=== PATIENT | male | born 1960 | race African-American/Black ===

== ENCOUNTER 2016-08-24 16:32 | Emergency (ER) | payer OTHER ==
[2016-08-24 16:37] VITALS: BP 118/80; PULSE 80; TEMP 98.1; BMI 21.9
--- NOTE | 2016-08-24 17:29 | PDOC ---
History of Present Illness - General Chief Complaint: Injury Stated Complaint: LT ARM INJURY Time Seen by Provider: 08/24/16 16:49 History Source: Patient Exam Limitations: No Limitations - History of Present Illness Initial Comments: 08/24/16 17:25 56-year-old male presents to the ED with complaints of bruising to the right bicep after he lifted some boxes up. patient states initially started with right anterior shoulder pain which resolved with time and denies any previous pain or injury to the affected area. 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 Patient has no other complaints at this time or history of DVT. Patient also denies any other bruising to his body including bleeding gums, blood-tinged urine, or rectal bleeding. Timing/Duration: other Severity: mild Associated Symptoms: reports: denies symptoms Past History - Past Medical History Allergies/Adverse Reactions: Allergies Allergy/AdvReac Type Severity Reaction Status Date / Time No Known Allergies Allergy Verified 08/24/16 16:36 Home Medications: Ambulatory Orders Amlodipine Besylate [Norvasc -] 10 mg PO DAILY 08/05/13 Aspirin [ASA -] 81 mg PO DAILY 08/05/13 Iron 325 mg PO DAILY 08/05/13 Prednisone [Deltasone -] 10 mg PO DAILY 08/05/13 Ramipril 10 mg PO DAILY 08/05/13 Tadalafil [Cialis] 5 mg PO DAILY 08/05/13 Insulin Glargine,Hum.rec.anlog [Lantus (10mL VIAL) -] 42 units SQ AM #0 Insulin Lispro [Humalog] 0 unit SQ DAILY #0 08/06/13 Metoprolol Tartrate [Lopressor -] 100 mg PO BID #60 tablet 08/06/13 Rosuvastatin [Crestor -] 20 mg PO DAILY #30 tablet 08/06/13 Tacrolimus [Prograf] 0.5 mg PO DAILY #0 08/06/13 Cellcept 750 mg PO BID 06/27/15 Diabetes: Yes HTN: Yes Kidney Stones: (RT KIDNEY TRANSPLAT 2004) - Psycho/Social/Smoking Cessation Hx Anxiety: No Suicidal Ideation: No Smoking History: Never smoked Have you smoked in the past 12 months: No If you are a former smoker, when did you quit?: 2001 Hx Alcohol Use: No Drug/Substance Use Hx: No Substance Use Type: Alcohol Patient Lives Alone: No Lives with/in: spouse/SO Review of Systems - Review of Systems Able to Perform ROS?: Yes Constitutional: No: Symptoms Reported Respiratory: No: Symptoms reported Cardiac (ROS): No: Symptoms Reported ABD/GI: No: Symptoms Reported : No: Symptoms Reported Musculoskeletal: No: Muscle Pain Integumentary: Yes: Bruising. No: Lumps Neurological: No: Tingling, Weakness Endocrine: No: Symptoms Reported Hematologic/Lymphatic: No: Symptoms Reported *Physical Exam - Vital Signs Last Vital Signs Temp Pulse Resp BP Pulse Ox 98.1 F 80 18 118/80 100 08/24/16 16:34 08/24/16 16:34 08/24/16 16:34 08/24/16 16:34 08/24/16 16:34 - Physical Exam General Appearance: Yes: Nourished, Appropriately Dressed. No: Apparent Distress Respiratory/Chest: positive: Lungs Clear, Normal Breath Sounds. negative: Respiratory Distress, Accessory Muscle Use Cardiovascular: positive: Regular Rhythm, Regular Rate. negative: Murmur Extremity: positive: Normal Capillary Refill, Normal Range of Motion. negative : Normal Inspection, Tender, Swelling Integumentary: positive: Ecchymosis (purpleish blue hue to patient's medial aspect of right bicep extending from the proximal aspect extending to the antecubital space. No palpable mass, no increased warmth, no tenderness to touch , surrounding skin intact.) Neurologic: positive: Motor Strength 5/5 (right hand grasp, right shoulder shrug , flexion and extension against resistance). negative: Sensory Deficit ED Treatment Course - RADIOLOGY Radiology Studies Ordered: Category Date Time Status DUPLEX VASCUL US-1 ARM [US] Stat Ultrasound 08/24/16 17:22 Ordered Medical Decision Making - Medical Decision Making 08/24/16 17:29 Patient with right bicep injury likely a partial tear. Secondary to patient's history patient will have a DVT study to rule out hematoma/DVT. Patient otherwise asymptomatic 08/24/16 18:24 Duplex shows no evidence of DVT but does show a hypoechoic complex masslike density in the left upper arm suggestive of a hematoma. Unable to rule out muscular tear. Patient will be given recommendations to take NSAIDs follow-up with or so, and return to ED if symptoms worsen *DC/Admit/Observation/Transfer Diagnosis at time of Disposition: Tear of biceps muscle Qualifiers: Encounter type: initial encounter Laterality: left Qualified Code(s): S46.112A - Strain of muscle, fascia and tendon of long head of biceps, left arm, initial encounter - Discharge Dispostion Disposition: HOME Condition at time of disposition: Good - Referrals Referrals: Bong Rick MD [Primary Care Provider] - Kalen Gallagher MD [Staff Physician] - - Patient Instructions Printed Discharge Instructions: DI for Hematoma (Bruise) Additional Instructions: Please apply heat to the affected area and massage slightly. Please take NSAIDs such as Motrin as needed for discomfort. If symptoms continue greater than 1 week, follow up with referred orthopedist.
== END 2016-08-24 18:32 | disposition home or self-care (01) ==
LOC: JERFT 16:32 → SUPCPDRO 16:32 → JERFT 18:32
DX: S46.112A Strain of muscle, fascia and tendon of long head of biceps, left arm, initial encounter (principal); X58.XXXA Exposure to other specified factors, initial encounter; Y93.89 Activity, other specified; Y92.9 Unspecified place or not applicable; Z94.0 Kidney transplant status; Z79.82 Long term (current) use of aspirin; E11.9 Type 2 diabetes mellitus without complications; I10 Essential (primary) hypertension; Z87.891 Personal history of nicotine dependence
CPT/HCPCS: 93971; 99281-25

== ENCOUNTER 2016-09-13 17:43 | Inpatient (IN) | payer OTHER ==
--- NOTE | 2016-09-13 18:47 | PDOC ---
History of Present Illness - General Chief Complaint: Laceration Stated Complaint: INJURY Time Seen by Provider: 09/13/16 18:45 History Source: Patient Exam Limitations: No Limitations - History of Present Illness Initial Comments: 09/13/16 19:20 Patient is here with complaints of cut to his left big toe. States is uncertain as to injury, but noticed swelling, redness, and discoloration to his foot today. Has had multiple issues in the past related to peripheral vascular disease and diabetes. Had partial amputation of right great toe and second digit of right foot secondary to diabetic ulcers and osteomyelitis some years ago. Patient is also a kidney transplant and immunosuppressed since 2004. Patient to peripheral neuropathy and has no sensation or pain to his legs therefore did not appreciate the wound to his toe until today. He for, but states does not generally mount fevers. Case was discussed with Dr. Castro Rangel in the main emergency department who agrees patient will be evaluated with probable admission for IV antibiotic therapy and moved to main emergency department for remainder of care and disposition. Patient was updated to plan. Occurred: reports: just prior to arrival, this afternoon Severity: reports: mild Pain Location: reports: none Associated Symptoms (Fall): denies symptoms Past History - Travel Traveled outside of the country in the last 30 days: No Close contact w/someone who was outside of country & ill: No - Past Medical History Allergies/Adverse Reactions: Allergies Allergy/AdvReac Type Severity Reaction Status Date / Time No Known Allergies Allergy Verified 09/13/16 17:55 Home Medications: Ambulatory Orders Amlodipine Besylate [Norvasc -] 10 mg PO DAILY 08/05/13 Aspirin [ASA -] 81 mg PO DAILY 08/05/13 Iron 325 mg PO DAILY 08/05/13 Prednisone [Deltasone -] 10 mg PO DAILY 08/05/13 Ramipril 10 mg PO DAILY 08/05/13 Tadalafil [Cialis] 5 mg PO DAILY 08/05/13 Insulin Lispro [Humalog] 0 unit SQ DAILY #0 08/06/13 Metoprolol Tartrate [Lopressor -] 100 mg PO BID #60 tablet 08/06/13 Rosuvastatin [Crestor -] 20 mg PO DAILY #30 tablet 08/06/13 Cellcept 750 mg PO BID 06/27/15 Insulin Glargine,Hum.rec.anlog [Lantus (10mL VIAL) -] 38 units SQ AM 09/14/16 Tacrolimus [Prograf] 2 mg PO AM 09/14/16 Tacrolimus [Prograf] 2.5 mg PO HS 09/14/16 Diabetes: Yes HTN: Yes Kidney Stones: (RT KIDNEY TRANSPLAT 2004) - Psycho/Social/Smoking Cessation Hx Anxiety: No Suicidal Ideation: No Smoking History: Never smoked Have you smoked in the past 12 months: No If you are a former smoker, when did you quit?: 2001 Information on smoking cessation initiated: No Hx Alcohol Use: No Drug/Substance Use Hx: No Substance Use Type: None Review of Systems - Review of Systems Able to Perform ROS?: Yes Is the patient limited Citizen [place] proficient: Yes Constitutional: Yes: Symptoms Reported, See HPI. No: Fever, Loss of Appetite, Malaise HEENTM: No: Symptoms Reported Respiratory: No: Symptoms reported Musculoskeletal: Yes: Symptoms Reported, See HPI. No: Joint Pain (diabetic peripheral neuropathy) Integumentary: Yes: See HPI, Erythema, Lesions Neurological: Yes: Paresthesia. No: Symptoms reported All Other Systems: Reviewed and Negative *Physical Exam - Vital Signs Last Vital Signs Temp Pulse Resp BP Pulse Ox 98.1 F 70 18 153/89 100 09/13/16 17:53 09/13/16 17:53 09/13/16 17:53 09/13/16 17:53 09/13/16 17:53 - Physical Exam General Appearance: Yes: Appropriately Dressed, Apparent Distress HEENT: positive: MARY, Normal ENT Inspection, TMs Normal, Pharynx Normal Neck: negative: Tender Respiratory/Chest: positive: Lungs Clear, Normal Breath Sounds Musculoskeletal: negative: Normal Inspection, Decreased Range of Motion, Vertebral Tenderness Extremity: positive: Normal Range of Motion, Swelling, Erythema, Other (patient with peripheral vascular disease changes, shiny appearance, and left foot approximately 1.5 times size of right lower extremity and foot.. Has swelling and open lesion to the left inner aspect of left great toe mid point ). negative: Normal Capillary Refill, Normal Inspection Integumentary: positive: Erythema, Swelling. negative: Normal Color Neurologic: positive: supervisor drapery hanging II-XII NML intact, Fully Oriented, Alert, Normal Mood/ Affect, Normal Response, Motor Strength 5/5 ED Treatment Course - LABORATORY CBC & Chemistry Diagram: 09/15/16 06:09/15/16 06:00 Progress Note - Progress Note Progress Note: IV started, labs drawn and sent, and patient moved to room 12 per direction from main emergency department evaluation and disposition. *DC/Admit/Observation/Transfer Diagnosis at time of Disposition: Cellulitis and abscess of foot
[2016-09-13 19:47] LABS: BASOPHIL 0.2 % (0-2.0); EOSINOPHIL 0.2 % (0-4.5); MCH 30.3 pg (25.7-33.7); MEAN CELL VOLUME 94.7 fl (80-96); MEAN PLT VOLUME 8.4 fl (7.5-11.1); NEUTROPHILS 72.3 % (42.8-82.8); PLATELET COUNT 224 K/MM3 (134-434); RDW 15.6 % (11.9-15.9); WHITE BLOOD COUNT 12.2 K/mm3 (4.0-10.0)
[2016-09-13 20:02] LABS: INR 1.05 (0.82-1.09); PROTHROMBIN TIME (PATIENT) 11.6 SEC (9.98-11.88)
[2016-09-13 20:34] LABS: URINE APPEARANCE CLEAR; URINE BILIRUBIN NEGATIVE (NEGATIVE); URINE BLOOD NEGATIVE (NEGATIVE); URINE COLOR YELLOW; URINE GLUCOSE (UA) 1+ (NEGATIVE); URINE KETONE NEGATIVE (NEGATIVE); URINE LEUK ESTERASE NEGATIVE (NEGATIVE); URINE NITRITE NEGATIVE (NEGATIVE); URINE UROBILINOGEN 2.0 E.U/dl E.U./dl (0.2-1.0)
[2016-09-13 20:53] LABS: ALBUMIN 3.4 g/dl (3.4-5.0); ALK PHOS 51 U/L (45-117); ANION GAP 10 (8-16); BILIRUBIN,TOTAL 1.8 mg/dL (0.2-1.0); CALCIUM 8.3 mg/dL (8.5-10.1); CO2 27 mmol/L (21-32); CREATININE 1.2 mg/dL (0.7-1.3); GLUCOSE,RANDOM 130 mg/dL (74-106); SGOT/AST 16 U/L (15-37); SGPT/ALT 13 U/L (12-78); TOT PROT 7.4 g/dl (6.4-8.2)
[2016-09-13 20:54] LABS: URINE PROTEIN 2+ (NEGATIVE)
[2016-09-13 20:56] LABS: URINE MUCUS RARE; URINE RBC 3 /hpf (0-3); URINE WBC 1 /hpf (3-5)
[2016-09-13] MEDS ORDERED: VANCOMYCIN 1,500 MG in DEXTROSE 5%-WATER - 500 ML IVPB ONE (22:34)
[2016-09-13] MEDS ORDERED: MYCOPHENOLATE MOFETIL 250 MG CAPSULE PO ONE (23:53)
--- NOTE | 2016-09-13 23:56 | HP ---
CHIEF COMPLAINT: Pain, swelling, redness to L-great toe/leg PCP: Dr. Rick HISTORY OF PRESENT ILLNESS: This is a 56 y/o male with a significant medical history of Hypertension, Hyperlipidemia, IDDM, Diabetic Ulcers, Osteomyelitis CVA (no deficits, 2001), s/ p Right Kidney Transplant (on Prograf/Cellcept, 2004). Who presents to the ED with pain, swelling, redness, "pus" to medial aspect of R-great toe he noted today. Patient unsure when the infection began. He reports having intermittent chills for a few days. He denies fever, cough, SOB, CP, AP, N/V/D, constipation , dysuria. ER course was notable for: (1) WBC 12.2 (2) ESR 37, CRP 12.3 (3) Xray left foot- report pending Recent Travel: None PAST MEDICAL HISTORY: See HPI PAST SURGICAL HISTORY: s/p R- Kidney Transplant 2004 L- Leg Sx R- Great Toe, 2nd digit partial amputation Social History: Smoking: Former 12 yrs ago Alcohol: Occasional Drugs: Denies Lives with spouse, employed [employer] Family History: Father: HTN, Kidney Disease, Sister: Kidney Disease Allergies No Known Allergies Allergy (Verified 09/13/16 17:55) HOME MEDICATIONS: Home Medications Medication Instructions Recorded Amlodipine Besylate [Norvasc -] 10 mg PO DAILY 08/05/13 Aspirin [ASA -] 81 mg PO DAILY 08/05/13 Iron 325 mg PO DAILY 08/05/13 Prednisone [Deltasone -] 10 mg PO DAILY 08/05/13 Ramipril 10 mg PO DAILY 08/05/13 Tadalafil [Cialis] 5 mg PO DAILY 08/05/13 Insulin Glargine,Hum.rec.anlog 42 units SQ AM #0 08/06/13 [Lantus (10mL VIAL) -] Insulin Lispro [Humalog] 0 unit SQ DAILY #0 08/06/13 Metoprolol Tartrate [Lopressor -] 100 mg PO BID #60 tablet 08/06/13 Rosuvastatin [Crestor -] 20 mg PO DAILY #30 tablet 08/06/13 Tacrolimus [Prograf] 0.5 mg PO DAILY #0 08/06/13 Cellcept 750 mg PO BID 06/27/15 REVIEW OF SYSTEMS CONSTITUTIONAL: Absent: fever, chills, diaphoresis, generalized weakness, malaise, loss of appetite, weight change HEENT: Absent: rhinorrhea, nasal congestion, throat pain, throat swelling, difficulty swallowing, mouth swelling, ear pain, eye pain, visual changes CARDIOVASCULAR: Absent: chest pain, syncope, palpitations, irregular heart rate, lightheadedness , peripheral edema RESPIRATORY: Absent: cough, shortness of breath, dyspnea with exertion, orthopnea, wheezing, stridor, hemoptysis GASTROINTESTINAL: Absent: abdominal pain, abdominal distension, nausea, vomiting, diarrhea, constipation, melena, hematochezia GENITOURINARY: Absent: dysuria, frequency, urgency, hesitancy, hematuria, flank pain, genital pain MUSCULOSKELETAL: Absent: myalgia, arthralgia, joint swelling, back pain, neck pain SKIN: redness/pustule to L-great toe Absent: rash, itching, pallor HEMATOLOGIC/IMMUNOLOGIC: Absent: easy bleeding, easy bruising, lymphadenopathy, frequent infections ENDOCRINE: Absent: unexplained weight gain, unexplained weight loss, heat intolerance, cold intolerance NEUROLOGIC: Absent: headache, focal weakness or paresthesias, dizziness, unsteady gait, seizure, mental status changes, bladder or bowel incontinence PSYCHIATRIC: Absent: anxiety, depression, suicidal or homicidal ideation, hallucinations. PHYSICAL EXAMINATION Vital Signs - 24 hr 09/13/16 09/13/16 17:53 22:49 Temperature 98.1 F 98.2 F Pulse Rate 70 Pulse Rate [ 66 Right Radial] Respiratory 18 20 Rate Blood Pressure 153/89 Blood Pressure 146/89 [Left Arm] O2 Sat by Pulse 100 99 Oximetry (%) GENERAL: Awake, alert, and fully oriented, in no acute distress. HEAD: Normal with no signs of trauma. EYES: Pupils equal, round and reactive to light, extraocular movements intact, sclera anicteric, conjunctiva clear. No lid lag. EARS, NOSE, THROAT: Ears normal, nares patent, oropharynx clear without exudates. Moist mucous membranes. NECK: Normal range of motion, supple without lymphadenopathy, JVD, or masses. LUNGS: Breath sounds equal, clear to auscultation bilaterally. No wheezes, and no crackles. No accessory muscle use. HEART: Regular rate and rhythm, normal S1 and S2 without murmur, rub or gallop. ABDOMEN: Soft, nontender, not distended, normoactive bowel sounds, no guarding, no rebound, no masses. No hepatomegaly or splenomegaly. MUSCULOSKELETAL: Normal range of motion at all joints. No bony deformities or tenderness. No CVA tenderness. UPPER EXTREMITIES: 2+ pulses, warm, well-perfused. No cyanosis. No clubbing. No peripheral edema. LOWER EXTREMITIES: 2+ pulses, warm, well-perfused. No calf tenderness. Trace L> R peripheral edema, +Shiny, hairless NEUROLOGICAL: Cranial nerves II-XII intact. Normal speech. Gait not observed. PSYCHIATRIC: Cooperative. Good eye contact. Appropriate mood and affect. SKIN: Warm, dry, normal turgor, no rashes .normal capillary refill. + erythema, edema, white pustule noted, no drainage to medial aspect of L- distal phalanx #1 , partial amputation to R- great phalanx noted Laboratory Results - last 24 hr 09/13/16 09/13/16 09/13/16 19:40 19:40 19:40 WBC 12.2 H RBC 4.15 Hgb 12.6 Hct 39.3 MCV 94.7 MCHC 32.0 RDW 15.6 Plt Count 224 MPV 8.4 Neutrophils % 72.3 Lymphocytes % 18.1 D Monocytes % 9.2 Eosinophils % 0.2 D Basophils % 0.2 ESR INR 1.05 Sodium 138 Potassium 3.7 Chloride 101 Carbon Dioxide 27 Anion Gap 10 BUN 10 D Creatinine 1.2 Creat Clearance w eGFR > 60 Random Glucose 130 H Lactic Acid Calcium 8.3 L Total Bilirubin 1.8 H AST 16 ALT 13 D Alkaline Phosphatase 51 D C-Reactive Protein Total Protein 7.4 Albumin 3.4 Urine Color Urine Appearance Urine pH Ur Specific [place] Urine Protein Urine Glucose (UA) Urine Ketones Urine Blood Urine Nitrite Urine Bilirubin Urine Urobilinogen Ur Leukocyte Esterase Urine RBC Urine WBC Urine Mucus 09/13/16 09/13/16 09/13/16 19:40 20:20 21:55 WBC RBC Hgb Hct MCV MCHC RDW Plt Count MPV Neutrophils % Lymphocytes % Monocytes % Eosinophils % Basophils % ESR INR Sodium Potassium Chloride Carbon Dioxide Anion Gap BUN Creatinine Creat Clearance w eGFR Random Glucose Lactic Acid 0.9 Calcium Total Bilirubin AST ALT Alkaline Phosphatase C-Reactive Protein 12.3 H Total Protein Albumin Urine Color Yellow Urine Appearance Clear Urine pH 6.0 Ur Specific [place] 1.025 Urine Protein 2+ H Urine Glucose (UA) 1+ H Urine Ketones Negative Urine Blood Negative Urine Nitrite Negative Urine Bilirubin Negative Urine Urobilinogen 2.0 e.u/dl Ur Leukocyte Esterase Negative Urine RBC 3 Urine WBC 1 Urine Mucus Rare 09/13/16 21:55 WBC RBC Hgb Hct MCV MCHC RDW Plt Count MPV Neutrophils % Lymphocytes % Monocytes % Eosinophils % Basophils % ESR 37 H INR Sodium Potassium Chloride Carbon Dioxide Anion Gap BUN Creatinine Creat Clearance w eGFR Random Glucose Lactic Acid Calcium Total Bilirubin AST ALT Alkaline Phosphatase C-Reactive Protein Total Protein Albumin Urine Color Urine Appearance Urine pH Ur Specific [place] Urine Protein Urine Glucose (UA) Urine Ketones Urine Blood Urine Nitrite Urine Bilirubin Urine Urobilinogen Ur Leukocyte Esterase Urine RBC Urine WBC Urine Mucus ASSESSMENT/PLAN: This is a 56 y/o male with a PMHx of: HTN, HLD, DM, s/p R- kidney transplant ( on Prograf, Cellsept, 2004), CVA (no residual, 2001). Admitted M/S Cellulitis L - Great Toe for further evaluation of their emergent condition. Plan: 1. ID: Cellulitis L- Great Toe - Likely secondary to PVD vs Neuropathy vs Hyperglycemia - Blood Cultures-pending - WBC 12.2 - ESR and CRP are elevated - Foot xray- r/o osteomyelitis report- pending - Vancomycin given in ED - Appreciate ID Consult - Consider Podiatry Consult - Wound Care- dressing - Will continue Vancomycin - Consider adding Zosyn for pseudomonal coverage - CBC in am 2. Endo: Diabetes Mellitus//Hyperglycemia - Serum glucose 130 - BGMs - ISS - Will hold home meds for tighter glycemic control - HgbA1C in am 3. Card: HTN//HLD - Controlled - Continue home meds - Monitor BP - Monitor renal function 4. Nephrology: s/p R- Kidney Transplant - Continue Prograf, Cellsept 5. Neuro: hx CVA - no residuals 6. FEN - Tolerates PO Fluids - Replete lytes prn - Low Na, Diabetic Diet Code Status: Full Code Dispo: Requires Inpatient Care Problem List - Problem (1) Cellulitis and abscess of foot Code(s): L03.119 - CELLULITIS OF UNSPECIFIED PART OF LIMB L02.619 - CUTANEOUS ABSCESS OF UNSPECIFIED FOOT (2) Diabetes mellitus Code(s): E11.9 - TYPE 2 DIABETES MELLITUS WITHOUT COMPLICATIONS (3) Hypertension Code(s): I10 - ESSENTIAL (PRIMARY) HYPERTENSION (4) Hyperlipemia Code(s): E78.5 - HYPERLIPIDEMIA, UNSPECIFIED (5) Status post kidney transplant Code(s): Z94.0 - KIDNEY TRANSPLANT STATUS (6) DVT prophylaxis Code(s): EER6449 - Visit type - Emergency Visit Emergency Visit: Yes ED Registration Date: 09/13/16 Care time: The patient presented to the Emergency Department on the above date and was hospitalized for further evaluation of their emergent condition. - New Patient This patient is new to me today: Yes Date on this admission: 09/13/16 - Critical Care Critical Care patient: No
--- NOTE | 2016-09-14 00:44 | PDOC ---
*Physical Exam - Vital Signs Last Vital Signs Temp Pulse Resp BP Pulse Ox 98.2 F 66 20 146/89 99 09/13/16 22:49 09/13/16 22:49 09/13/16 22:49 09/13/16 22:49 09/13/16 22:49 - Physical Exam Comments: 09/14/16 00:43 The patient was examined by STEERER Delano] under my direct supervision. I personally evaluated the patient. I concur with the above findings and the plan of care. ED Treatment Course - LABORATORY CBC & Chemistry Diagram: 09/13/16 19:40 09/13/16 19:40 - ADDITIONAL ORDERS Additional order review: Laboratory Results 09/13/16 09/13/16 09/13/16 21:55 20:20 19:40 INR Sodium Potassium Chloride Carbon Dioxide Anion Gap BUN Creatinine Creat Clearance w eGFR Random Glucose Lactic Acid 0.9 Calcium Total Bilirubin AST ALT Alkaline Phosphatase C-Reactive Protein 12.3 H Total Protein Albumin Urine Color Yellow Urine Appearance Clear Urine pH 6.0 Ur Specific [place] 1.025 Urine Protein 2+ H Urine Glucose (UA) 1+ H Urine Ketones Negative Urine Blood Negative Urine Nitrite Negative Urine Bilirubin Negative Urine Urobilinogen 2.0 e.u/dl Ur Leukocyte Esterase Negative Urine RBC 3 Urine WBC 1 Urine Mucus Rare 09/13/16 09/13/16 19:40 19:40 INR 1.05 Sodium 138 Potassium 3.7 Chloride 101 Carbon Dioxide 27 Anion Gap 10 BUN 10 D Creatinine 1.2 Creat Clearance w eGFR > 60 Random Glucose 130 H Lactic Acid Calcium 8.3 L Total Bilirubin 1.8 H AST 16 ALT 13 D Alkaline Phosphatase 51 D C-Reactive Protein Total Protein 7.4 Albumin 3.4 Urine Color Urine Appearance Urine pH Ur Specific [place] Urine Protein Urine Glucose (UA) Urine Ketones Urine Blood Urine Nitrite Urine Bilirubin Urine Urobilinogen Ur Leukocyte Esterase Urine RBC Urine WBC Urine Mucus 09/13/16 19:40 RBC 4.15 MCV 94.7 MCHC 32.0 RDW 15.6 MPV 8.4 Neutrophils % 72.3 Lymphocytes % 18.1 D Monocytes % 9.2 Eosinophils % 0.2 D Basophils % 0.2 - Medications Given in the ED: ED Medications Discontinued Medications Generic Name Dose Route Start Last Admin Trade Name Freq PRN Reason Stop Dose Admin Vancomycin HCl 1,500 mg/ 500 mls @ 250 mls/hr 09/13/16 22:34 09/13/16 23:00 Dextrose IVPB 09/14/16 00:33 250 mls/hr ONCE ONE Administration Protocol Mycophenolate Mofetil 750 mg 09/13/16 23:53 09/14/16 00:22 Cellcept - PO 09/13/16 23:54 750 mg ONCE ONE Administration *DC/Admit/Observation/Transfer Diagnosis at time of Disposition: Cellulitis and abscess of foot - Discharge Dispostion Condition at time of disposition: Fair Admit: Yes
[2016-09-14] MEDS ORDERED: TACROLIMUS 0.5 MG CAPSULE (NF) PO SCH (00:45)
[2016-09-14] MEDS: TACROLIMUS ANHYDROUS 1 MG CAPSULE (NF) PO SCH ×2 (01:00→09:18)
[2016-09-14 03:38] VITALS: BMI 21.9
[2016-09-14] MEDS: INSULIN SLIDING SCALE (NOVOLOG) 1 VIAL SQ SCH ×4 (06:01→21:36)
[2016-09-14] MEDS: amLODIPine BESYLATE 10 MG TABLET (FP) PO SCH (06:38)
[2016-09-14] MEDS ORDERED: TACROLIMUS 2 MG PO SCH (07:00)
[2016-09-14] MEDS ORDERED: PT OWN MED DRAWER 7, Y5N ONE ×3 (09:13→21:06)
--- NOTE | 2016-09-14 09:13 | PN ---
Progress Note (short form) - Note Progress Note: Subjective: The patient was seen and examined at the bedside, he states he noticed pus on his left foot great toe about 4-5 days ago. Wound culture ordered Podiatry consult F/u ID consult Current Medications Generic Name Dose Route Start Last Admin Trade Name Gaganq PRN Reason Stop Dose Admin Amlodipine Besylate 10 mg 09/14/16 06:45 09/14/16 06:38 Norvasc - PO 10 mg DAILY MIA Administration Aspirin 81 mg 09/14/16 10:00 Asa - PO DAILY [facility] Ferrous Sulfate 325 mg 09/14/16 10:00 Feosol - PO DAILY MIA Vancomycin HCl 1,250 mg/ 250 mls @ 166.667 mls/hr 09/14/16 22:00 Dextrose IVPB BID MIA Vancomycin HCl 1,250 mg/ 250 mls @ 166.667 mls/hr 09/14/16 10:00 Dextrose IVPB 09/14/16 11:29 ONCE ONE Insulin Aspart 1 vial 09/14/16 07:00 09/14/16 06:01 Novolog Vial Sliding Scale - SQ Not Given ACHS [facility] Protocol Insulin Detemir 38 units 09/14/16 08:00 Levemir Vial SQ AM [facility] Metoprolol Tartrate 100 mg 09/14/16 10:00 Lopressor - PO BID MIA Mycophenolate Mofetil 750 mg 09/14/16 10:00 Cellcept - PO BID MIA Prednisone 10 mg 09/14/16 10:00 Deltasone - PO DAILY MIA Ramipril 10 mg 09/14/16 10:00 Altace - PO DAILY MIA Rosuvastatin Calcium 20 mg 09/14/16 22:00 Crestor - PO HS MIA Tacrolimus 2 mg 09/14/16 00:45 09/14/16 01:00 Prograf (Non-Formulary) PO 2 mg BID MIA Administration Tacrolimus 0.5 mg 09/14/16 00:45 09/14/16 01:00 Prograf (Non-Formulary) PO 0.5 mg HS MIA Administration Objective: Vital Signs Period Temp Pulse Resp BP Sys/C[place]oba Pulse Ox Last 24 Hr 98.1 F-98.4 F 64-76 18-20 146-172/89-96 99-100 Physical Exam: General: NAD, A&Ox3 Lungs: CTA bilaterally Heart: RRR, S1S2 Abd: Soft, non-tender, non-distended. Normoactive bowel sounds Ext: Left foot, lateral great toe with pustule and yellowish drainage. Left foot edema Neuro: CN 2-12 intact CBCD WBC 12.2 K/mm3 (4.0-10.0) H 09/13/16 19:40 RBC 4.15 M/mm3 (4.00-5.60) 09/13/16 19:40 Hgb 12.6 GM/dL (11.7-16.9) 09/13/16 19:40 Hct 39.3 % (35.4-49) 09/13/16 19:40 MCV 94.7 fl (80-96) 09/13/16 19:40 MCHC 32.0 g/dl (32.0-35.9) 09/13/16 19:40 RDW 15.6 % (11.9-15.9) 09/13/16 19:40 Plt Count 224 K/MM3 (134-434) 09/13/16 19:40 MPV 8.4 fl (7.5-11.1) 09/13/16 19:40 CMP Sodium 138 mmol/L (136-145) 09/13/16 19:40 Potassium 3.7 mmol/L (3.5-5.1) 09/13/16 19:40 Chloride 101 mmol/L (98-107) 09/13/16 19:40 Carbon Dioxide 27 mmol/L (21-32) 09/13/16 19:40 Anion Gap 10 (8-16) 09/13/16 19:40 BUN 10 mg/dL (7-18) D 09/13/16 19:40 Creatinine 1.2 mg/dL (0.7-1.3) 09/13/16 19:40 Creat Clearance w eGFR > 60 (>60) 09/13/16 19:40 Random Glucose 130 mg/dL (74-106) H 09/13/16 19:40 Calcium 8.3 mg/dL (8.5-10.1) L 09/13/16 19:40 Total Bilirubin 1.8 mg/dL (0.2-1.0) H 09/13/16 19:40 AST 16 U/L (15-37) 09/13/16 19:40 ALT 13 U/L (12-78) D 09/13/16 19:40 Alkaline Phosphatase 51 U/L (45-117) D 09/13/16 19:40 Total Protein 7.4 g/dl (6.4-8.2) 09/13/16 19:40 Albumin 3.4 g/dl (3.4-5.0) 09/13/16 19:40 Assessment: This is a 56 year old male with PMHx of HTN, HLD, DM, s/p R- kidney transplant (on Prograf, Cellsept, 2004), CVA (no residual, 2001), who presented to the ED with left foot great toe wound/pustule. Plan: 1) ID: Left foot, great toe cellulitis - Elevated ESR/CRP - F/u foot x-ray - Continue Vancomycin per now (pending ID approval) - MRI left foot - F/u wound culture - F/u podiatry consult - F/u ID consult 2) Endocrine: DM - Continue Levemir 38u sq am - BGM ACHS - ISS ACHS 3) Cardiology: HTN - Continue home medications Hyperlipidemia - Continue Crestor 4) Nephrology: S/p right kidney transplant - Continue Prograf - Continue Cellcept - Continue Prenisone 5) F/E/N: - Sodium controlled, diabetic diet - Monitor electrolytes 6) Prophylaxis: - SCDs bilaterally - OOB ambulating 7) Dispo: - Requires continued inpatient care CODE STATUS: FULL CODE Visit type - Emergency Visit Emergency Visit: Yes ED Registration Date: 09/14/16 Care time: The patient presented to the Emergency Department on the above date and was hospitalized for further evaluation of their emergent condition. - New Patient This patient is new to me today: Yes Date on this admission: 09/14/16 - Critical Care Critical Care patient: No
[2016-09-14] MEDS: METOPROLOL TARTRATE 50 MG TABLET (FP) PO SCH ×2 (09:15→21:20)
[2016-09-14] MEDS: predniSONE 10 MG TABLET (UD) PO SCH (09:16)
[2016-09-14] MEDS: FERROUS SO4 325 MG TABLET (FP) PO SCH (09:16)
[2016-09-14] MEDS: RAMIPRIL 5 MG CAPSULE (FP) PO SCH (09:16)
[2016-09-14] MEDS: ASPIRIN 81 MG CHEWABLE TABLETS PO SCH (09:16)
[2016-09-14] MEDS: MYCOPHENOLATE MOFETIL 250 MG CAPSULE PO SCH ×2 (09:17→21:21)
[2016-09-14] MEDS: INSULIN DETEMIR 100 UNITS/ML MDV SQ SCH (09:23)
[2016-09-14] MEDS ORDERED: VANCOMYCIN 1,250 MG in DEXTROSE 5%-WATER - 250 ML IVPB ONE (10:00)
[2016-09-14] MEDS ORDERED: amLODIPine BESYLATE 10 MG TABLET (FP) PO SCH (10:00)
--- NOTE | 2016-09-14 15:18 | CONSULT ---
Consult - text type - Consultation Consultation Note: Podiatry Consultation: Pleasant 56 year old IDDM M presents to hospital for admission with small "pus filled bubble" on the inside of his great toe for approximately 1 week. Patient reports chills for the past week as week. Presented to emergency room when he noticed drainage from the toe. Denies F/V/N/C/SOB/CP. Currently afebrile, VSS. PMHx: IDDM, s/p kidney transplant, HTN, HLP, h/o CVA, h/o R great toe partial amputation Meds: noted ALL: NKMA TAJ: Pedal pulses 1/4 bilaterally, TG wnl, CFT brisk to all toes. On the left foot, there is a small open wound on the distal lateral aspect of the toe. There is purulence expressed from the wound. Additionally, on the plantar hallux there is a small open wound that probes deep, purulence expressed, tunnelling present , no soft tissue crepitus, no periwound erythema, no ascending cellulitis. Minimal tenderness to palpation. WBC: 12.2 ESR: 37 L foot XR: ST swelling, tiny erosion medial aspect of distal phalanx base raises suspicion of OM Imp: 56 year old DM M with L great toe abscess 1. Stab incision made along lateral aspect of great toe using #11 blade scalpel , purulence expressed. In addition, debridement performed of L great toe plantar DM ulcer to subcutaneous tissue using #11 blade scalpel, purulence again expressed from the site. The site was thoroughly cleansed and a dry sterile dressing applied. An appropriate soft tissue culture was obtained. 2. Will f/u wound cx. 3. Will f/u blood cx. 4. IV abx per ID. I discussed the case with ID, recommend MRI L foot to evaluate for osteomyelitis. 5. Bactroban + DSD daily to L foot. 6. Thank you for the courtesy of this consultation. Michael Samuels DPM
--- NOTE | 2016-09-14 16:52 | CONSULT ---
Consult Consult Specialty:: infectious diseases Reason for Consultation:: cellulitits of the foot - History of Present Illness Chief Complaint: swelling of the toe and swelling of the foot History of Present Illness: 56 y/o male with a significant medical history of Hypertension, Hyperlipidemia, IDDM, Diabetic Ulcers, Osteomyelitis CVA (no deficits, 2001), s/p Right Kidney Transplant (on Prograf/Cellcept, 2004). admitted with pain, swelling, redness, "pus" to medial aspect of R-great toe . Patient unsure when the infection began. He reports having intermittent chills for a few days. He denies fever, cough, SOB, CP, AP, N/V/D, constipation, dysuria. evalauted the patient with podiatry and the plan is to meche the wound cx ahve been send on the patient kehinde pus can be seen coming out of the rt toe patient otherwise doing well has no fevers patient denies any injury to the legs - History Source History Provided By: Patient Limitations to Obtaining History: No Limitations - Past Medical History Cardio/Vascular: Yes: HTN, Hyperlipdemia. No: AFIB Endocrine: Yes: Diabetes Mellitus - Alcohol/Substance Use Hx Alcohol Use: No - Smoking History Smoking history: Never smoked Have you smoked in the past 12 months: No If you are a former smoker, when did you quit?: 2001 Home Medications - Allergies Allergies/Adverse Reactions: Allergies Allergy/AdvReac Type Severity Reaction Status Date / Time No Known Allergies Allergy Verified 09/13/16 17:55 - Home Medications Home Medications: Ambulatory Orders Amlodipine Besylate [Norvasc -] 10 mg PO DAILY 08/05/13 Aspirin [ASA -] 81 mg PO DAILY 08/05/13 Iron 325 mg PO DAILY 08/05/13 Prednisone [Deltasone -] 10 mg PO DAILY 08/05/13 Ramipril 10 mg PO DAILY 08/05/13 Tadalafil [Cialis] 5 mg PO DAILY 08/05/13 Insulin Lispro [Humalog] 0 unit SQ DAILY #0 08/06/13 Metoprolol Tartrate [Lopressor -] 100 mg PO BID #60 tablet 08/06/13 Rosuvastatin [Crestor -] 20 mg PO DAILY #30 tablet 08/06/13 Cellcept 750 mg PO BID 06/27/15 Insulin Glargine,Hum.rec.anlog [Lantus (10mL VIAL) -] 38 units SQ AM 09/14/16 Tacrolimus [Prograf] 4 mg PO AM 09/14/16 Tacrolimus [Prograf] 5 mg PO HS 09/14/16 Review of Systems - Review of Systems Constitutional: reports: Fever Eyes: reports: No Symptoms HENT: reports: No Symptoms Neck: reports: No Symptoms Cardiovascular: reports: No Symptoms Respiratory: reports: No Symptoms Gastrointestinal: reports: No Symptoms Genitourinary: reports: No Symptoms Musculoskeletal: reports: Other Integumentary: reports: Change in Color, Erythema, Other (pus coming from the toe) Neurological: reports: No Symptoms Endocrine: reports: No Symptoms Hematology/Lymphatic: reports: No Symptoms Psychiatric: reports: No Symptoms Physical Exam Vital Signs: Vital Signs Temperature 98.5 F 09/14/16 14:41 Pulse Rate 65 09/14/16 14:41 Respiratory Rate 20 09/14/16 14:41 Blood Pressure 113/60 09/14/16 14:41 O2 Sat by Pulse Oximetry (%) 99 09/14/16 09:00 Constitutional: Yes: No Distress, Calm, Thin Neck: Yes: Supple Cardiovascular: Yes: Regular Rate and Rhythm Respiratory: Yes: Regular, CTA Bilaterally Gastrointestinal: Yes: Normal Bowel Sounds, Soft Musculoskeletal: Yes: Other Extremities: Yes: Other (pus seen on the rt great toe) Integumentary: Yes: Erythema (of the rt foot) Wound/Incision: Yes: Other Neurological: Yes: Alert, Oriented Psychiatric: Yes: Alert Imaging - Results Chest X-ray: Report Reviewed, Image Reviewed X-ray: Report Reviewed, Image Reviewed Assessment/Plan Left foot, great toe cellulitis and abscess DM HTN S/p right kidney transplant i think we should r/o osteo of the foot plan i am going to start ertapenam will await for cx reports then will need to adjust abx rest as per primary mri of the foot
[2016-09-14] MEDS: CLINDAMYCIN HCL 150 MG CAPSULE (FP) PO SCH (17:21)
[2016-09-14] MEDS ORDERED: INSULIN DETEMIR 100 UNITS/ML MDV SQ ONE (17:26)
[2016-09-14] MEDS ORDERED: INSULIN (NOVOLOG) ASPART 100 UNITS/ML 10ML VIAL ONE ×2 (17:26→21:13)
[2016-09-14] MEDS: ERTAPENEM SODIUM 1 GM in SODIUM CHLORIDE 50 ML IVPB SCH (18:00)
[2016-09-14] MEDS: ROSUVASTATIN CA 20 MG TABLET (FP) PO SCH (21:20)
[2016-09-14] MEDS: MUPIROCIN 2% TOPICAL OINTMENT 22 GM TUBE TP SCH (21:23)
[2016-09-14] MEDS ORDERED: TACROLIMUS ANHYDROUS 1 MG CAPSULE (NF) PO SCH (22:00)
[2016-09-14] MEDS ORDERED: VANCOMYCIN 1,250 MG in DEXTROSE 5%-WATER - 250 ML IVPB SCH (22:00)
[2016-09-14] MEDS ORDERED: TACROLIMUS 2.5 MG PO SCH (22:00)
[2016-09-15] MEDS: CLINDAMYCIN HCL 150 MG CAPSULE (FP) PO SCH ×4 (01:00→17:50)
[2016-09-15] MEDS: INSULIN DETEMIR 100 UNITS/ML MDV SQ SCH (06:34)
[2016-09-15] MEDS: INSULIN SLIDING SCALE (NOVOLOG) 1 VIAL SQ SCH ×4 (06:35→21:28)
[2016-09-15 07:43] LABS: BASOPHIL 0.3 % (0-2.0); EOSINOPHIL 0.4 % (0-4.5); MCH 31.3 pg (25.7-33.7); MEAN CELL VOLUME 95.1 fl (80-96); MEAN PLT VOLUME 8.6 fl (7.5-11.1); NEUTROPHILS 63.3 % (42.8-82.8); PLATELET COUNT 193 K/MM3 (134-434); RDW 15.8 % (11.9-15.9); WHITE BLOOD COUNT 9.7 K/mm3 (4.0-10.0)
[2016-09-15 08:08] LABS: ANION GAP 7 (8-16); CALCIUM 8.1 mg/dL (8.5-10.1); CO2 28 mmol/L (21-32); CREATININE 1.2 mg/dL (0.7-1.3); GLUCOSE,RANDOM 205 mg/dL (74-106)
[2016-09-15] MEDS ORDERED: PT OWN MED DRAWER 7, Y5N ONE ×2 (09:46→14:05)
[2016-09-15] MEDS: RAMIPRIL 5 MG CAPSULE (FP) PO SCH (09:56)
[2016-09-15] MEDS: METOPROLOL TARTRATE 50 MG TABLET (FP) PO SCH ×2 (09:57→21:18)
[2016-09-15] MEDS: ASPIRIN 81 MG CHEWABLE TABLETS PO SCH (09:57)
[2016-09-15] MEDS: FERROUS SO4 325 MG TABLET (FP) PO SCH (09:57)
[2016-09-15] MEDS: amLODIPine BESYLATE 10 MG TABLET (FP) PO SCH (09:57)
[2016-09-15] MEDS: predniSONE 10 MG TABLET (UD) PO SCH (09:58)
[2016-09-15] MEDS ORDERED: TACROLIMUS ANHYDROUS 1 MG CAPSULE (NF) PO SCH (10:00)
[2016-09-15] MEDS: MYCOPHENOLATE MOFETIL 250 MG CAPSULE PO SCH ×2 (10:01→21:17)
[2016-09-15] MEDS: TACROLIMUS ANHYDROUS 1 MG CAPSULE (NF) PO SCH ×2 (10:02→21:18)
[2016-09-15] MEDS: ERTAPENEM SODIUM 1 GM in SODIUM CHLORIDE 50 ML IVPB SCH (10:33)
[2016-09-15] MEDS: MUPIROCIN 2% TOPICAL OINTMENT 22 GM TUBE TP SCH ×2 (13:00→23:26)
--- NOTE | 2016-09-15 14:42 | PN ---
Physical Exam: SUBJECTIVE: Patient seen and examined. He has no complaints, he would like to go home after MRI. Denies fever, chills OBJECTIVE: Vital Signs Period Temp Pulse Resp BP Sys/[place] Pulse Ox Last 24 Hr 98 F-98.7 F 65-76 18-20 106-118/60-80 97-99 PE Neuro: alert, awake, cn 2-12intact Pulm: CTAB CV: s1 s2 rrr no mrg Abd: s nt nd +bs Ext: left great toe swelling, posterior wound open, dried, no tenderness, no drainage Laboratory Results - last 24 hr 09/14/16 09/14/16 09/15/16 17:11 21:34 06:00 WBC 9.7 RBC 3.91 L Hgb 12.3 Hct 37.2 MCV 95.1 MCHC 33.0 RDW 15.8 Plt Count 193 MPV 8.6 Neutrophils % 63.3 Lymphocytes % 24.3 D Monocytes % 11.7 H Eosinophils % 0.4 D Basophils % 0.3 Sodium Potassium Chloride Carbon Dioxide Anion Gap BUN Creatinine POC Glucometer 240 240 Random Glucose Calcium 09/15/16 09/15/16 09/15/16 06:00 06:30 11:41 WBC RBC Hgb Hct MCV MCHC RDW Plt Count MPV Neutrophils % Lymphocytes % Monocytes % Eosinophils % Basophils % Sodium 136 Potassium 3.8 Chloride 101 Carbon Dioxide 28 Anion Gap 7 L BUN 13 D Creatinine 1.2 POC Glucometer 159 193 Random Glucose 205 H D Calcium 8.1 L Active Medications Generic Name Dose Route Start Last Admin Trade Name Gaganq PRN Reason Stop Dose Admin Amlodipine Besylate 10 mg 09/14/16 06:45 09/15/16 09:57 Norvasc - PO 10 mg DAILY [facility] Administration Aspirin 81 mg 09/14/16 10:00 09/15/16 09:57 Asa - PO 81 mg DAILY [facility] Administration Clindamycin HCl 300 mg 09/14/16 18:00 09/15/16 12:03 Cleocin - PO 300 mg Q6HPO MIA Administration Ferrous Sulfate 325 mg 09/14/16 10:00 09/15/16 09:57 Feosol - PO 325 mg DAILY [facility] Administration Ertapenem 1 gm/ Sodium 50 mls @ 50 mls/hr 09/14/16 17:00 09/15/16 10:33 Chloride IVPB 50 mls/hr DAILY [facility] Administration Protocol Insulin Aspart 1 vial 09/14/16 07:00 09/15/16 11:44 Novolog Vial Sliding Scale - SQ 2 units ACHS [facility] Administration Protocol Insulin Detemir 38 units 09/14/16 08:00 09/15/16 06:34 Levemir Vial SQ 38 units AM [facility] Administration Metoprolol Tartrate 100 mg 09/14/16 10:00 09/15/16 09:57 Lopressor - PO 100 mg BID [facility]IA Administration Mupirocin 1 applic 09/14/16 22:00 09/14/16 21:23 Bactroban 2% Ointment - TP 1 appful BID [facility] Administration Mycophenolate Mofetil 750 mg 09/14/16 10:00 09/15/16 10:01 Cellcept - PO 750 mg BID [facility] Administration Prednisone 10 mg 09/14/16 10:00 09/15/16 09:58 Deltasone - PO 10 mg DAILY [facility] Administration Ramipril 10 mg 09/14/16 10:00 09/15/16 09:56 Altace - PO 10 mg DAILY [facility] Administration Rosuvastatin Calcium 20 mg 09/14/16 22:00 09/14/16 21:20 Crestor - PO 20 mg HS [facility] Administration Tacrolimus 2 mg 09/15/16 10:00 09/15/16 10:02 Prograf (Non-Formulary) PO 2 mg BID [facility]IA Administration Tacrolimus 0.5 mg 09/15/16 22:00 Prograf (Non-Formulary) PO HS MIA Imaging: - Left foot xray: soft tissue swelling of big toe, tiny erosions at medial aspect of base, ?osteo, possible charcot type changes at TMT joints Assessment: 56 year old male with PMHx of HTN, HLD, DM, s/p R- kidney transplant (on Prograf, Cellsept, 2004), CVA (no residual, 2001), admitted with left foot great toe wound/pustule. Plan: 1. Left foot, great toe cellulitis - MRI foot today r/o osteo - Ertapenem daily per ID - Follow wound and blood cx 2. DM II - Continue Levemir 38u sq am - BGM, ISS ACHS 3. HTN - Well controlled - Ramipril 10mg - Norvasc 10mg daily - Metoprolol 100mg BID 4. Hyperlipidemia - Continue Crestor 5. S/p right kidney transplant - Continue Prograf - Continue Cellcept - Continue Prenisone - Check prograf level in AM, 30 mins before AM dose CODE STATUS: FULL CODE Visit type - Emergency Visit Emergency Visit: Yes ED Registration Date: 09/14/16 Care time: The patient presented to the Emergency Department on the above date and was hospitalized for further evaluation of their emergent condition. - New Patient This patient is new to me today: Yes Date on this admission: 09/15/16 - Critical Care Critical Care patient: No
--- NOTE | 2016-09-15 17:26 | PN ---
Progress Note, Physician History of Present Illness: doing well going to [facility] [place] mri of the foot in room spoke in detail with the - Current Medication List Current Medications: Active Medications Amlodipine Besylate (Norvasc -) 10 mg PO DAILY [facility] Last Admin: 09/15/16 09:57 Dose: 10 mg Aspirin (Asa -) 81 mg PO DAILY [facility] Last Admin: 09/15/16 09:57 Dose: 81 mg Clindamycin HCl (Cleocin -) 300 mg PO Q6HPO [facility] Last Admin: 09/15/16 12:03 Dose: 300 mg Ferrous Sulfate (Feosol -) 325 mg PO DAILY [facility] Last Admin: 09/15/16 09:57 Dose: 325 mg Ertapenem 1 gm/ Sodium (Chloride) 50 mls @ 50 mls/hr IVPB DAILY [facility] PRN Reason: Protocol Last Admin: 09/15/16 10:33 Dose: 50 mls/hr Insulin Aspart (Novolog Vial Sliding Scale -) 1 vial SQ ACHS [facility] PRN Reason: Protocol Last Admin: 09/15/16 11:44 Dose: 2 units Insulin Detemir (Levemir Vial) 38 units SQ AM [facility] Last Admin: 09/15/16 06:34 Dose: 38 units Metoprolol Tartrate (Lopressor -) 100 mg PO BID [facility] Last Admin: 09/15/16 09:57 Dose: 100 mg Mupirocin (Bactroban 2% Ointment -) 1 applic TP BID [facility] Last Admin: 09/14/16 21:23 Dose: 1 appful Mycophenolate Mofetil (Cellcept -) 750 mg PO BID [facility] Last Admin: 09/15/16 10:01 Dose: 750 mg Prednisone (Deltasone -) 10 mg PO DAILY [facility] Last Admin: 09/15/16 09:58 Dose: 10 mg Ramipril (Altace -) 10 mg PO DAILY [facility] Last Admin: 09/15/16 09:56 Dose: 10 mg Rosuvastatin Calcium (Crestor -) 20 mg PO HS [facility] Last Admin: 09/14/16 21:20 Dose: 20 mg Tacrolimus (Prograf (Non-Formulary)) 2 mg PO BID [facility] Last Admin: 09/15/16 10:02 Dose: 2 mg Tacrolimus (Prograf (Non-Formulary)) 0.5 mg PO [facility] - Objective Vital Signs: Vital Signs Temperature 98.5 F 09/15/16 14:58 Pulse Rate 62 09/15/16 14:58 Respiratory Rate 18 09/15/16 14:58 Blood Pressure 123/79 09/15/16 14:58 O2 Sat by Pulse Oximetry (%) 97 09/15/16 09:00 Constitutional: Yes: No Distress, Calm Cardiovascular: Yes: Regular Rate and Rhythm Respiratory: Yes: Regular, CTA Bilaterally Gastrointestinal: Yes: Normal Bowel Sounds, Soft Musculoskeletal: Yes: WNL Extremities: Yes: Other Neurological: Yes: Alert, Oriented Psychiatric: Yes: Alert Labs: CBC, BMP 09/15/16 06:00 09/15/16 06:00 INR, PTT INR 1.05 (0.82-1.09) 09/13/16 19:40 Assessment/Plan Left foot, great toe cellulitis and abscess DM HTN S/p right kidney transplant i think we should r/o osteo of the foot plan continue abx await for mri and cx reports rest as per primary
[2016-09-15] MEDS: ROSUVASTATIN CA 20 MG TABLET (FP) PO SCH (21:16)
[2016-09-15] MEDS ORDERED: TACROLIMUS 0.5 MG CAPSULE (NF) PO SCH (22:00)
[2016-09-16] MEDS: CLINDAMYCIN HCL 150 MG CAPSULE (FP) PO SCH ×3 (01:25→12:09)
[2016-09-16] MEDS: INSULIN DETEMIR 100 UNITS/ML MDV SQ SCH (06:26)
[2016-09-16] MEDS: INSULIN SLIDING SCALE (NOVOLOG) 1 VIAL SQ SCH ×4 (06:26→23:20)
[2016-09-16 07:35] LABS: BASOPHIL 0.3 % (0-2.0); EOSINOPHIL 0.5 % (0-4.5); MCH 30.8 pg (25.7-33.7); MCHC 32.5 g/dl (32.0-35.9); MEAN CELL VOLUME 94.8 fl (80-96); MEAN PLT VOLUME 9.1 fl (7.5-11.1); NEUTROPHILS 58.5 % (42.8-82.8); PLATELET COUNT 224 K/MM3 (134-434); RDW 15.7 % (11.9-15.9); WHITE BLOOD COUNT 8.7 K/mm3 (4.0-10.0)
[2016-09-16] MEDS: FERROUS SO4 325 MG TABLET (FP) PO SCH (09:39)
[2016-09-16] MEDS: METOPROLOL TARTRATE 50 MG TABLET (FP) PO SCH ×2 (09:39→23:08)
[2016-09-16] MEDS: ASPIRIN 81 MG CHEWABLE TABLETS PO SCH (09:39)
[2016-09-16] MEDS: RAMIPRIL 5 MG CAPSULE (FP) PO SCH (09:39)
[2016-09-16] MEDS: predniSONE 10 MG TABLET (UD) PO SCH (09:39)
[2016-09-16] MEDS: amLODIPine BESYLATE 10 MG TABLET (FP) PO SCH (09:39)
[2016-09-16] MEDS: ERTAPENEM SODIUM 1 GM in SODIUM CHLORIDE 50 ML IVPB SCH (09:40)
[2016-09-16] MEDS: MYCOPHENOLATE MOFETIL 250 MG CAPSULE PO SCH ×2 (09:40→23:08)
[2016-09-16] MEDS: TACROLIMUS ANHYDROUS 1 MG CAPSULE (NF) PO SCH (09:41)
[2016-09-16] MEDS: MUPIROCIN 2% TOPICAL OINTMENT 22 GM TUBE TP SCH ×2 (09:42→23:21)
--- NOTE | 2016-09-16 16:07 | PN ---
Physical Exam: SUBJECTIVE: Patient seen and examined. He would really like to go home, he says his foot feels better and hes walking without pain OBJECTIVE: Vital Signs Period Temp Pulse Resp BP Sys/[place] Pulse Ox Last 24 Hr 97.8 F-98.5 F 65-67 17-20 111-149/55-90 95-97 PE Neuro: alert, awake, cn 2-12intact Pulm: CTAB CV: s1 s2 rrr no mrg Abd: s nt nd +bs Ext: left great toe swelling, lle swelling resolved, minor wound drainage Laboratory Results - last 24 hr 09/15/16 09/15/16 09/16/16 17:49 21:25 06:00 WBC 8.7 RBC 4.02 Hgb 12.4 Hct 38.1 MCV 94.8 MCHC 32.5 RDW 15.7 Plt Count 224 MPV 9.1 Neutrophils % 58.5 Lymphocytes % 27.7 Monocytes % 13.0 H Eosinophils % 0.5 Basophils % 0.3 POC Glucometer 168 255 Active Medications Generic Name Dose Route Start Last Admin Trade Name Gaganq PRN Reason Stop Dose Admin Amlodipine Besylate 10 mg 09/14/16 06:45 09/16/16 09:39 Norvasc - PO 10 mg DAILY [facility] Administration Aspirin 81 mg 09/14/16 10:00 09/16/16 09:39 Asa - PO 81 mg DAILY [facility] Administration Clindamycin HCl 300 mg 09/14/16 18:00 09/16/16 12:09 Cleocin - PO 300 mg Q6HPO [facility] Administration Ferrous Sulfate 325 mg 09/14/16 10:00 09/16/16 09:39 Feosol - PO 325 mg DAILY [facility] Administration Ertapenem 1 gm/ Sodium 50 mls @ 50 mls/hr 09/14/16 17:00 09/16/16 09:40 Chloride IVPB 50 mls/hr DAILY [facility] Administration Protocol Insulin Aspart 1 vial 09/14/16 07:00 09/16/16 12:13 Novolog Vial Sliding Scale - SQ 4 units ACHS [facility] Administration Protocol Insulin Detemir 38 units 09/14/16 08:00 09/16/16 06:26 Levemir Vial SQ 38 units AM [facility] Administration Metoprolol Tartrate 100 mg 09/14/16 10:00 09/16/16 09:39 Lopressor - PO 100 mg BID [facility]IA Administration Mupirocin 1 applic 09/14/16 22:00 09/16/16 09:42 Bactroban 2% Ointment - TP Not Given BID [facility]IA Mycophenolate Mofetil 750 mg 09/14/16 10:00 09/16/16 09:40 Cellcept - PO 750 mg BID [facility]IA Administration Prednisone 10 mg 09/14/16 10:00 09/16/16 09:39 Deltasone - PO 10 mg DAILY [facility] Administration Ramipril 10 mg 09/14/16 10:00 09/16/16 09:39 Altace - PO 10 mg DAILY [facility] Administration Rosuvastatin Calcium 20 mg 09/14/16 22:00 09/15/16 21:16 Crestor - PO 20 mg HS [facility]IA Administration Tacrolimus 5 mg 09/16/16 13:30 Prograf (Non Formulary) PO HS [facility] Tacrolimus 4 mg 09/17/16 07:00 Prograf (Non-Formulary) PO AM [facility] Imaging: - Left foot xray: soft tissue swelling of big toe, tiny erosions at medial aspect of base, ?osteo, possible charcot type changes at TMT joints Assessment: 56 year old male with PMHx of HTN, HLD, DM, s/p R- kidney transplant (on Prograf, Cellsept, 2004), CVA (no residual, 2001), admitted with left foot great toe wound/pustule. Plan: 1. Left foot, great toe cellulitis - MRI foot suggestive of osteo - Ertapenem daily per ID - Awaiting wound cx - D/w ID 2. DM II, uncontrolled - Continue Levemir 38u sq am - BGM, ISS ACHS 3. HTN - Well controlled - Ramipril 10mg - Norvasc 10mg daily - Metoprolol 100mg BID 4. Hyperlipidemia - Continue Crestor 5. S/p right kidney transplant - Per pt takes Prograf 4mg in AM and 5mg HS - Continue Cellcept - Continue Prenisone - Prograf level drawn CODE STATUS: FULL CODE Visit type - Emergency Visit Emergency Visit: Yes ED Registration Date: 09/14/16 Care time: The patient presented to the Emergency Department on the above date and was hospitalized for further evaluation of their emergent condition. - New Patient This patient is new to me today: No - Critical Care Critical Care patient: No
[2016-09-16] MEDS ORDERED: INSULIN DETEMIR 100 UNITS/ML MDV SQ SCH ×2 (16:30→22:00)
--- NOTE | 2016-09-16 17:11 | PN ---
Progress Note, Physician History of Present Illness: patient doing well stable no new issues - Current Medication List Current Medications: Active Medications Amlodipine Besylate (Norvasc -) 10 mg PO DAILY [facility] Last Admin: 09/16/16 09:39 Dose: 10 mg Aspirin (Asa -) 81 mg PO DAILY [facility] Last Admin: 09/16/16 09:39 Dose: 81 mg Clindamycin HCl (Cleocin -) 300 mg PO Q6HPO [facility] Last Admin: 09/16/16 12:09 Dose: 300 mg Ferrous Sulfate (Feosol -) 325 mg PO DAILY [facility] Last Admin: 09/16/16 09:39 Dose: 325 mg Ertapenem 1 gm/ Sodium (Chloride) 50 mls @ 50 mls/hr IVPB DAILY [facility] PRN Reason: Protocol Last Admin: 09/16/16 09:40 Dose: 50 mls/hr Insulin Aspart (Novolog Vial Sliding Scale -) 1 vial SQ ACHS [facility] PRN Reason: Protocol Last Admin: 09/16/16 12:13 Dose: 4 units Insulin Detemir (Levemir Vial) 23 units SQ BID@0700,2200 [facility] Insulin Detemir (Levemir Vial) 7 units SQ ONCE@2200 ONE Stop: 09/16/16 22:01 Metoprolol Tartrate (Lopressor -) 100 mg PO BID [facility] Last Admin: 09/16/16 09:39 Dose: 100 mg Mupirocin (Bactroban 2% Ointment -) 1 applic TP BID [facility] Last Admin: 09/16/16 09:42 Dose: Not Given Mycophenolate Mofetil (Cellcept -) 750 mg PO BID [facility] Last Admin: 09/16/16 09:40 Dose: 750 mg Prednisone (Deltasone -) 10 mg PO DAILY [facility] Last Admin: 09/16/16 09:39 Dose: 10 mg Ramipril (Altace -) 10 mg PO DAILY [facility] Last Admin: 09/16/16 09:39 Dose: 10 mg Rosuvastatin Calcium (Crestor -) 20 mg PO HS [facility] Last Admin: 09/15/16 21:16 Dose: 20 mg Tacrolimus (Prograf (Non Formulary)) 5 mg PO HS [facility] Tacrolimus (Prograf (Non-Formulary)) 4 mg PO AM [facility] - Objective Vital Signs: Vital Signs Temperature 98.5 F 09/16/16 14:22 Pulse Rate 66 09/16/16 14:22 Respiratory Rate 18 09/16/16 14:22 Blood Pressure 111/67 09/16/16 14:22 O2 Sat by Pulse Oximetry (%) 95 09/16/16 09:35 Constitutional: Yes: No Distress, Calm Cardiovascular: Yes: Regular Rate and Rhythm Respiratory: Yes: Regular, CTA Bilaterally Gastrointestinal: Yes: Normal Bowel Sounds, Soft Musculoskeletal: Yes: Other Extremities: Yes: Other Wound/Incision: Yes: Dressing Dry and Intact Neurological: Yes: Alert, Oriented Psychiatric: Yes: Alert, Oriented Labs: CBC, BMP 09/16/16 06:00 09/15/16 06:00 INR, PTT INR 1.05 (0.82-1.09) 09/13/16 19:40 Assessment/Plan Left foot, great toe cellulitis and abscess DM HTN S/p right kidney transplant i think we should r/o osteo of the foot plan continue abx cx reports noted stopped clinda and ertapenam switched to zosyn patient will need it for 4-6 weeks will order esr and crp
[2016-09-16] MEDS: PIPERACILLIN/TAZOB 3.375 GM 50 ML IVPB SCH (17:48)
[2016-09-16] MEDS ORDERED: PIPERACILLIN/TAZOB 3.375 GM 3.375 GM in DEXTROSE 5%-WATER - 50 ML IVPB SCH (18:00)
[2016-09-16] MEDS ORDERED: INSULIN DETEMIR 100 UNITS/ML MDV SQ ONE (22:00)
[2016-09-16] MEDS ORDERED: PT OWN MED DRAWER 7, Y5N ONE (22:59)
[2016-09-16] MEDS: ROSUVASTATIN CA 20 MG TABLET (FP) PO SCH (23:04)
[2016-09-16] MEDS: TACROLIMUS ANHYDROUS 5 MG CAPSULE (NF) PO SCH (23:10)
[2016-09-17] MEDS: PIPERACILLIN/TAZOB 3.375 GM 50 ML IVPB SCH ×3 (03:09→17:15)
[2016-09-17] MEDS: INSULIN SLIDING SCALE (NOVOLOG) 1 VIAL SQ SCH ×4 (06:22→21:21)
[2016-09-17] MEDS: INSULIN DETEMIR 100 UNITS/ML MDV SQ SCH ×2 (06:34→21:20)
[2016-09-17] MEDS: TACROLIMUS ANHYDROUS 1 MG CAPSULE (NF) PO SCH (06:35)
[2016-09-17] MEDS ORDERED: PT OWN MED DRAWER 7, Y5N ONE ×2 (09:17→21:07)
[2016-09-17] MEDS: METOPROLOL TARTRATE 50 MG TABLET (FP) PO SCH ×2 (09:18→21:17)
[2016-09-17] MEDS: predniSONE 10 MG TABLET (UD) PO SCH (09:18)
[2016-09-17] MEDS: amLODIPine BESYLATE 10 MG TABLET (FP) PO SCH (09:18)
[2016-09-17] MEDS: ASPIRIN 81 MG CHEWABLE TABLETS PO SCH (09:19)
[2016-09-17] MEDS: FERROUS SO4 325 MG TABLET (FP) PO SCH (09:19)
[2016-09-17] MEDS: RAMIPRIL 5 MG CAPSULE (FP) PO SCH (09:19)
[2016-09-17] MEDS: MYCOPHENOLATE MOFETIL 250 MG CAPSULE PO SCH ×2 (09:20→21:18)
[2016-09-17] MEDS: MUPIROCIN 2% TOPICAL OINTMENT 22 GM TUBE TP SCH ×2 (12:04→22:56)
--- NOTE | 2016-09-17 12:08 | PN ---
Progress Note (short form) - Note Progress Note: Podiatry F/U: Seen and evaluated at bedside, NAD, recently returned from obtaining PICC line. Denies F/V/N/C/SOB/CP. S/p incision and drainage at bedside L great toe. Notes pain is resolved to L great toe. Currently afebrile, VSS. TAJ: L foot: plantar hallux tuft ulcer with fibrogranular base, probing deep, mild seropurulent drainage superficially, no deep purulent collection, no periwound erythema, no ascending cellulitis, no soft tissue crepitus, no signs of acute infection. Small superficial ulcer lateral hallux with mostly granular base, small area of slough. WBC: 8.7 ESR: 33 Wound Cx: E. Cloacae, E. Faecalis L foot MRI: bone marrow edema distal tuft great toe Imp: 56 year old DM M with L plantar hallux ulcer and osteomyelitis 1. will need superintendent container terminal IV abx per ID 2. Partial WB L heel with surgical shoe 3. Excisional debridement L great toe ulcer at bedside using sterile scissors. 4. Bactroban + DSD L foot daily 5. Upon discharge, will f/u with me in [facility] 09/25/16. Michael Samuels DPM
--- NOTE | 2016-09-17 14:40 | PN ---
Progress Note, Physician History of Present Illness: patient doing well stable has a picc line placed - Current Medication List Current Medications: Active Medications Amlodipine Besylate (Norvasc -) 10 mg PO DAILY [facility] Last Admin: 09/17/16 09:18 Dose: 10 mg Aspirin (Asa -) 81 mg PO DAILY [facility] Last Admin: 09/17/16 09:19 Dose: 81 mg Ferrous Sulfate (Feosol -) 325 mg PO DAILY [facility] Last Admin: 09/17/16 09:19 Dose: 325 mg Piperacillin Sod/Tazobactam Sod (Zosyn 3.375gm Ivpb (Pre-Docked)) 50 mls @ 100 mls/hr IVPB Q8H-IV [facility] PRN Reason: Protocol Last Admin: 09/17/16 09:20 Dose: 100 mls/hr Insulin Aspart (Novolog Vial Sliding Scale -) 1 vial SQ ACHS [facility] PRN Reason: Protocol Last Admin: 09/17/16 11:55 Dose: 2 units Insulin Detemir (Levemir Vial) 23 units SQ BID@0700,2200 [facility] Last Admin: 09/17/16 06:34 Dose: 23 units Metoprolol Tartrate (Lopressor -) 100 mg PO BID [facility] Last Admin: 09/17/16 09:18 Dose: 100 mg Mupirocin (Bactroban 2% Ointment -) 1 applic TP BID [facility] Last Admin: 09/17/16 12:04 Dose: Not Given Mycophenolate Mofetil (Cellcept -) 750 mg PO BID [facility] Last Admin: 09/17/16 09:20 Dose: 750 mg Prednisone (Deltasone -) 10 mg PO DAILY [facility] Last Admin: 09/17/16 09:18 Dose: 10 mg Ramipril (Altace -) 10 mg PO DAILY [facility] Last Admin: 09/17/16 09:19 Dose: 10 mg Rosuvastatin Calcium (Crestor -) 20 mg PO HS [facility] Last Admin: 09/16/16 23:04 Dose: 20 mg Tacrolimus (Prograf (Non Formulary)) 5 mg PO HS [facility] Last Admin: 09/16/16 23:10 Dose: 5 mg Tacrolimus (Prograf (Non-Formulary)) 4 mg PO AM [facility] Last Admin: 09/17/16 06:35 Dose: 4 mg - Objective Vital Signs: Vital Signs Temperature 98.1 F 09/17/16 09:13 Pulse Rate 61 09/17/16 09:13 Respiratory Rate 17 09/17/16 09:13 Blood Pressure 120/66 09/17/16 09:13 O2 Sat by Pulse Oximetry (%) 99 09/17/16 09:13 Constitutional: Yes: No Distress, Calm Cardiovascular: Yes: Regular Rate and Rhythm Respiratory: Yes: Regular, CTA Bilaterally Musculoskeletal: Yes: WNL Extremities: Yes: Other Neurological: Yes: Alert, Oriented Psychiatric: Yes: Alert, Oriented Labs: CBC, BMP 09/16/16 06:00 09/15/16 06:00 INR, PTT INR 1.05 (0.82-1.09) 09/13/16 19:40 Assessment/Plan Left foot, great toe cellulitis and abscess DM HTN S/p right kidney transplant osteo of the foot plan continue abx cx reports noted stopped clinda and ertapenam switched to zosyn patient will need it for 4-6 weeks will order esr and crp
--- NOTE | 2016-09-17 16:13 | PN ---
Physical Exam: SUBJECTIVE: Patient seen and examined. He is upset he cannot go home today. He will stay, explained to pt and at beside. OBJECTIVE: Vital Signs Period Temp Pulse Resp BP Sys/[place] Pulse Ox Last 24 Hr 97.5 F-98.6 F 56-65 14-20 115-146/66-89 95-99 PE Neuro: alert, awake, cn 2-12intact Pulm: CTAB CV: s1 s2 rrr no mrg Abd: s nt nd +bs Ext: left great toe wound, swelling improved, dressed, RUE picc Laboratory Results - last 24 hr 09/16/16 09/16/16 09/17/16 16:51 23:14 06:22 ESR POC Glucometer 174 200 128 C-Reactive Protein 09/17/16 09/17/16 09/17/16 06:30 06:30 11:54 ESR 33 H POC Glucometer 175 C-Reactive Protein 5.4 H D Active Medications Generic Name Dose Route Start Last Admin Trade Name Freq PRN Reason Stop Dose Admin Amlodipine Besylate 10 mg 09/14/16 06:45 09/17/16 09:18 Norvasc - PO 10 mg DAILY MIA Administration Aspirin 81 mg 09/14/16 10:00 09/17/16 09:19 Asa - PO 81 mg DAILY MIA Administration Ferrous Sulfate 325 mg 09/14/16 10:00 09/17/16 09:19 Feosol - PO 325 mg DAILY MIA Administration Piperacillin Sod/Tazobactam Sod 50 mls @ 100 mls/hr 09/16/16 18:00 09/17/16 09: 20 Zosyn 3.375gm Ivpb (Pre-Docked) IVPB 100 mls/hr Q8H-IV MIA Administration Protocol Insulin Aspart 1 vial 09/14/16 07:00 09/17/16 11:55 Novolog Vial Sliding Scale - SQ 2 units ACHS MIA Administration Protocol Insulin Detemir 23 units 09/17/16 07:00 09/17/16 06:34 Levemir Vial SQ 23 units BID@0700,2200 MIA Administration Metoprolol Tartrate 100 mg 09/14/16 10:00 09/17/16 09:18 Lopressor - PO 100 mg BID MIA Administration Mupirocin 1 applic 09/14/16 22:00 09/17/16 12:04 Bactroban 2% Ointment - TP Not Given BID MIA Mycophenolate Mofetil 750 mg 09/14/16 10:00 09/17/16 09:20 Cellcept - PO 750 mg BID MIA Administration Prednisone 10 mg 09/14/16 10:00 09/17/16 09:18 Deltasone - PO 10 mg DAILY MIA Administration Ramipril 10 mg 09/14/16 10:00 09/17/16 09:19 Altace - PO 10 mg DAILY MIA Administration Rosuvastatin Calcium 20 mg 09/14/16 22:00 09/16/16 23:04 Crestor - PO 20 mg HS MIA Administration Tacrolimus 5 mg 09/16/16 13:30 09/16/16 23:10 Prograf (Non Formulary) PO 5 mg HS MIA Administration Tacrolimus 4 mg 09/17/16 07:00 09/17/16 06:35 Prograf (Non-Formulary) PO 4 mg AM MIA Administration Abx: - Clindamycin 09/14-09/16 - Ertapenum Imaging: - Left foot xray: soft tissue swelling of big toe, tiny erosions at medial aspect of base, ?osteo, possible charcot type changes at TMT joints Assessment: 56 year old male with PMHx of HTN, HLD, DM, s/p R- kidney transplant (on Prograf, Cellsept, 2004), CVA (no residual, 2001), admitted with left foot great toe wound/pustule. Plan: 1. Left foot, great toe cellulitis - MRI foot suggestive of osteo - Now on zosyn - Awaiting organisms #3 final speciation, per mirco will result tomorrow - Patient will go home with infusions with cor - Pharmacy point person to call tomorrow is Libia to give the final prescription to over phone 2. DM II, uncontrolled - Sugars stable - Levemir 38u sq am - BGM, ISS ACHS 3. HTN - Well controlled - Ramipril 10mg - Norvasc 10mg daily - Metoprolol 100mg BID 4. Hyperlipidemia - Continue Crestor 5. S/p right kidney transplant - Prograf 4mg in AM and 5mg HS - Continue Cellcept - Continue Prenisone - Prograf level drawn CODE STATUS: FULL CODE Visit type - Emergency Visit Emergency Visit: Yes ED Registration Date: 09/14/16 Care time: The patient presented to the Emergency Department on the above date and was hospitalized for further evaluation of their emergent condition. - New Patient This patient is new to me today: No - Critical Care Critical Care patient: No
[2016-09-17] MEDS: ROSUVASTATIN CA 20 MG TABLET (FP) PO SCH (21:19)
[2016-09-17] MEDS: TACROLIMUS ANHYDROUS 5 MG CAPSULE (NF) PO SCH (21:19)
[2016-09-18] MEDS: PIPERACILLIN/TAZOB 3.375 GM 50 ML IVPB SCH ×2 (02:26→09:44)
[2016-09-18] MEDS: INSULIN DETEMIR 100 UNITS/ML MDV SQ SCH ×2 (06:47→07:44)
[2016-09-18] MEDS: TACROLIMUS ANHYDROUS 1 MG CAPSULE (NF) PO SCH (06:48)
[2016-09-18] MEDS: INSULIN SLIDING SCALE (NOVOLOG) 1 VIAL SQ SCH ×2 (06:48→11:43)
[2016-09-18] MEDS ORDERED: PT OWN MED DRAWER 7, Y5N ONE (07:37)
[2016-09-18] MEDS: amLODIPine BESYLATE 10 MG TABLET (FP) PO SCH (09:44)
[2016-09-18] MEDS: RAMIPRIL 5 MG CAPSULE (FP) PO SCH (09:44)
[2016-09-18] MEDS: predniSONE 10 MG TABLET (UD) PO SCH (09:44)
[2016-09-18] MEDS: METOPROLOL TARTRATE 50 MG TABLET (FP) PO SCH (09:44)
[2016-09-18] MEDS: ASPIRIN 81 MG CHEWABLE TABLETS PO SCH (09:45)
[2016-09-18] MEDS: FERROUS SO4 325 MG TABLET (FP) PO SCH (09:45)
[2016-09-18] MEDS: MYCOPHENOLATE MOFETIL 250 MG CAPSULE PO SCH (09:48)
[2016-09-18] MEDS: MUPIROCIN 2% TOPICAL OINTMENT 22 GM TUBE TP SCH (09:52)
--- NOTE | 2016-09-18 12:02 | PN ---
Progress Note, Physician History of Present Illness: patient doing well no issues - Current Medication List Current Medications: Active Medications Amlodipine Besylate (Norvasc -) 10 mg PO DAILY [facility] Last Admin: 09/18/16 09:44 Dose: 10 mg Aspirin (Asa -) 81 mg PO DAILY [facility] Last Admin: 09/18/16 09:45 Dose: 81 mg Ferrous Sulfate (Feosol -) 325 mg PO DAILY [facility] Last Admin: 09/18/16 09:45 Dose: 325 mg Piperacillin Sod/Tazobactam Sod (Zosyn 3.375gm Ivpb (Pre-Docked)) 50 mls @ 100 mls/hr IVPB Q8H-IV [facility] PRN Reason: Protocol Last Admin: 09/18/16 09:44 Dose: 100 mls/hr Insulin Aspart (Novolog Vial Sliding Scale -) 1 vial SQ ACHS [facility] PRN Reason: Protocol Last Admin: 09/18/16 11:43 Dose: 4 units Insulin Detemir (Levemir Vial) 23 units SQ BID@0700,2200 [facility] Last Admin: 09/18/16 07:44 Dose: 23 units Metoprolol Tartrate (Lopressor -) 100 mg PO BID [facility] Last Admin: 09/18/16 09:44 Dose: 100 mg Mupirocin (Bactroban 2% Ointment -) 1 applic TP BID [facility] Last Admin: 09/18/16 09:52 Dose: 1 applic Mycophenolate Mofetil (Cellcept -) 750 mg PO BID [facility] Last Admin: 09/18/16 09:48 Dose: 750 mg Prednisone (Deltasone -) 10 mg PO DAILY [facility] Last Admin: 09/18/16 09:44 Dose: 10 mg Ramipril (Altace -) 10 mg PO DAILY [facility] Last Admin: 09/18/16 09:44 Dose: 10 mg Rosuvastatin Calcium (Crestor -) 20 mg PO HS [facility] Last Admin: 09/17/16 21:19 Dose: 20 mg Tacrolimus (Prograf (Non Formulary)) 5 mg PO HS [facility] Last Admin: 09/17/16 21:19 Dose: 5 mg Tacrolimus (Prograf (Non-Formulary)) 4 mg PO AM [facility] Last Admin: 09/18/16 06:48 Dose: 4 mg - Objective Vital Signs: Vital Signs Temperature 98.8 F 09/18/16 04:00 Pulse Rate 60 09/18/16 10:00 Respiratory Rate 18 09/18/16 10:00 Blood Pressure 130/82 09/18/16 10:00 O2 Sat by Pulse Oximetry (%) 99 09/17/16 22:00 Constitutional: Yes: No Distress, Calm HENT: Yes: Atraumatic Neck: Yes: Supple, Trachea Midline Cardiovascular: Yes: Regular Rate and Rhythm Respiratory: Yes: Regular, CTA Bilaterally Gastrointestinal: Yes: Normal Bowel Sounds, Soft Musculoskeletal: Yes: WNL Extremities: Yes: Other Wound/Incision: Yes: Dressing Dry and Intact Neurological: Yes: Alert, Oriented Psychiatric: Yes: Alert, Oriented Labs: CBC, BMP 09/16/16 06:00 09/15/16 06:00 INR, PTT INR 1.05 (0.82-1.09) 09/13/16 19:40 Assessment/Plan Left foot, great toe cellulitis and abscess DM HTN S/p right kidney transplant osteo of the foot plan all cx reports noted zosyn for 5 weeks
--- NOTE | 2016-09-18 12:47 | DS ---
Physical Exam: SUBJECTIVE: Patient seen and examined. States he feels well, eager to go home. OBJECTIVE: Patient taught importance of keeping PICC line sterile and importance of taking the Zosyn as prescribed. For discharge today after he receives the 3:30 dose of Zosyn. Vital Signs Period Temp Pulse Resp BP Sys/[place]oba Pulse Ox Last 24 Hr 97.5 F-98.8 F 60-79 12-20 120-146/69-88 98-99 PHYSICAL EXAM GENERAL: The patient is awake, alert, and fully oriented, in no acute distress. HEAD: Normal with no signs of trauma. EYES: PERRL, extraocular movements intact, sclera anicteric, conjunctiva clear. ENT: Ears normal, nares patent, oropharynx clear without exudates, moist mucous membranes. NECK: Trachea midline, full range of motion, supple. ABDOMEN: Soft, nontender, nondistended, normoactive bowel sounds, no guarding, no rebound, no hepatosplenomegaly, no masses. EXTREMITIES: left foot cellulitis and abscess - dressing clean/dry/intact NEUROLOGICAL: Normal speech, steady gait PSYCH: Normal mood, normal affect. SKIN: Warm, dry, normal turgor, no rashes or lesions noted. LABS Laboratory Results - last 24 hr 09/17/16 09/17/16 09/18/16 17:13 21:14 06:47 POC Glucometer 224 251 127 09/18/16 11:39 POC Glucometer 242 HOSPITAL COURSE: Date of Admission:09/14/16 Date of Discharge: 09/18/16 Patient is a 55 year old male with a significant past medical history of hypertension, HLD, diabetes, right kidney transplant (on Prograf, Cellsep) and a CVA. He was admitted on 09/14/2016 with cellulitis and abscess of the left great toe. During hospitalization he was treated with IV antibiotics of Clindamycin (09/14-09/16) and Ertapenum (09/14-09/16). Once wound cultures identified the three organisms, patient was put on Zosyn 3.375gm q8 which he will continue for another 5 weeks (through October 22, 2016) ID: Cellulitis - Left foot cellulitis and abscess - improving Assessment/Plan: Patient to continue Zosyn through right arm PICC line for 5 more weeks facilitated by [facility] company. Patient aware of the importance of taking the antibiotics on a timely manner and also taught on the importance of maintaining the PICC line sterile Home infusion company will visit patient today at home for continued education and to assure compliance. Wound care instructions taught to patient by primary RN. Patient cleared by ID for discharge. Endocrine: Diabetes - chronic Assessment/Plan: continue home medications Cardiology: Hypertension: Assessment/Plan: Controlled on home medications Renal: Right Kidney transplant Assessment/Plan: On Prograf, Cellcept, Prednisone Disposition: D/c home today after 3:30 dose of Zosyn as per ID. Full Code. Minutes to complete discharge: 60 Discharge Summary Reason For Visit: CELLULITIS AND ABSCESS OF FOOT Current Active Problems Cellulitis and abscess of foot (Acute) Diabetes mellitus (Acute) Condition: Stable - Instructions Diet, Activity, Other Instructions: Mr. Weiss: wound care instructions 1. wash hands 2. irrigate wound with sterile saline 3. bactroban ointment and secure with dry sterile dressing twice per day Please report if you experience any redness, streaks or worsening pain from this wound Please take the Zosyn antibiotic as prescribed for 5 more weeks. Please do not wet the dressing of the PICC line, if you shower, cover it with Saran wrap. Please call me with any questions that you may have. Mellissa Ross, JIGAN [phone] Referrals: Nawaf Velasco MD [Staff Physician] - Bong Rick MD [Primary Care Provider] - Disposition: HOME - Home Medications Comprehensive Discharge Medication List: Ambulatory Orders Amlodipine Besylate [Norvasc -] 10 mg PO DAILY 08/05/13 Aspirin [ASA -] 81 mg PO DAILY 08/05/13 Iron 325 mg PO DAILY 08/05/13 Prednisone [Deltasone -] 10 mg PO DAILY 08/05/13 Ramipril 10 mg PO DAILY 08/05/13 Tadalafil [Cialis] 5 mg PO DAILY 08/05/13 Insulin Lispro [Humalog] 0 unit SQ DAILY #0 08/06/13 Metoprolol Tartrate [Lopressor -] 100 mg PO BID #60 tablet 08/06/13 Rosuvastatin [Crestor -] 20 mg PO DAILY #30 tablet 08/06/13 Cellcept 750 mg PO BID 06/27/15 Insulin Glargine,Hum.rec.anlog [Lantus (10mL VIAL) -] 38 units SQ AM 09/14/16 Tacrolimus [Prograf] 4 mg PO AM 09/14/16 Tacrolimus [Prograf] 5 mg PO HS 09/14/16 Acetaminophen [Tylenol] 325 mg PO Q6H #30 tablet 09/17/16 Heparin Sodium,Porcine/Pf [Heparin IV Flush 10 Unit/ml Sy] 10 unit IV Q8H #105 ml 09/17/16 Piperacillin/Tazob 3.375 gm [Zosyn 3.375GM Ivpb (Pre-Docked)] 3.375 gm IVPB Q8H #105 bag 09/17/16 Sodium Chloride 0.9% [Normal Saline Flush (0.9%) 10ML Disp.syrin] 10 ml ID Q8H # 105 disp.syrin 09/17/16 This patient is new to me today: Yes Date on this admission: 09/18/16 Emergency Visit: Yes ED Registration Date: 09/14/16 Care time: The patient presented to the Emergency Department on the above date and was hospitalized for further evaluation of their emergent condition. Critical Care patient: No - Discharge Referral Referred to [facility] No
[2016-09-18 13:28] VITALS: BP 106/78; PULSE 110; TEMP 98.4
[2016-09-18] MEDS ORDERED: PIPERACILLIN/TAZOB 3.375 GM 50 ML IVPB ONE (15:30)
== END 2016-09-18 16:35 | disposition home or self-care (01) | DRG 264 ==
LOC: JERFT 17:43 → JERBED 09-14 00:44 → UNDOADMIN 09-14 01:11 → JERBED 09-14 02:25 → J5S 09-14 02:41
PROVIDERS: ADMIT Internal Medicine; ATTEND Nurse Practitioner Family
PROC: 0JBR0ZZ Excision of Left Foot Subcutaneous Tissue and Fascia, Open Approach (ICD-10-PCS; principal; 2016-09-14)
PROC: 02HV33Z Insertion of Infusion Device into Superior Vena Cava, Percutaneous Approach (ICD-10-PCS; 2016-09-17)
PROC: B5181ZA Fluoroscopy of Superior Vena Cava using Low Osmolar Contrast, Guidance (ICD-10-PCS; 2016-09-17)
DX: E11.51 Type 2 diabetes mellitus with diabetic peripheral angiopathy without gangrene (principal); Z94.0 Kidney transplant status; M86.9 Osteomyelitis, unspecified; E11.621 Type 2 diabetes mellitus with foot ulcer; Z79.4 Long term (current) use of insulin; L03.032 Cellulitis of left toe; B95.2 Enterococcus as the cause of diseases classified elsewhere; B96.20 Unspecified Escherichia coli [E. coli] as the cause of diseases classified elsewhere; E11.69 Type 2 diabetes mellitus with other specified complication; I10 Essential (primary) hypertension; E78.5 Hyperlipidemia, unspecified; L97.529 Non-pressure chronic ulcer of other part of left foot with unspecified severity
CPT/HCPCS: 36415; 36569; 71020-TC; 73630-TC-LT; 73718-LT; 77001-TC; 80048; 80053; 80197; 81003; 81015; 83036; 83605; 85025; 85610; 85651; 86140; 87040; 87070; 87186; 87205; 99285-25; C1751; J7517

== ENCOUNTER 2017-09-22 08:37 | Inpatient (IN) | payer OTHER ==
[2017-09-22 08:51] VITALS: BMI 23.7
--- NOTE | 2017-09-22 09:13 | PDOC ---
History of Present Illness - General History Source: Patient Exam Limitations: No Limitations - History of Present Illness Initial Comments: 09/22/17 10:21 The patient is a 57 year old male with past medical history of hypertension, hyperlipidemia, IDDM, s/p right kidney transplant (2004, on immunosuppressants) who presents to the ED with complaints of diarrhea for the past 6 days. The patient reports having about 10 daily episodes of watery, loose stools. Denies any blood or melena. Additionally, he reports a constant,left lower to mid back pain that is sharp and 7/10 in severity which he describes as gas pain and is unrelieved by Gas-X. He reports having a fever 2 days ago (100) which has resolved, reports mild body aches in his arms and legs, but denies any chills. Denies nausea, hematemesis, or urinary complaints. Denies any cough, SOB, CP. He reports that one week ago he was at [facility] and ate a turkey club which could have contributed to his symptoms. He reports trying to keep hydrated , drinking about 5 cups of water a day. Social: Denies tobacco or illicit drug use. Reports social alcohol use. Surgical: Kidney transplant, partial right big toe amputation (follows up with wound care) PCP: Dr. Rick Kidney transplant team is at [facility]. <Amanda Gibson - Last Filed: 09/22/17 11:39> <Ibis Giordano - Last Filed: 09/22/17 12:06> - General Chief Complaint: Diarrhea Stated Complaint: WEAKNESS Time Seen by Provider: 09/22/17 09:06 Past History <Amanda Gibson - Last Filed: 09/22/17 11:39> - Past Medical History CVA: Yes COPD: No Diabetes: Yes (insulin dependent) HTN: Yes Kidney Stones: (RT KIDNEY TRANSPLAT 2004) Other medical history: kidney transplant - Surgical History Orthopedic Surgery: (PARTIAL RT BIG TOE AMPUTATION) - Suicide/Smoking/Psychosocial Hx Smoking History: Never smoked Have you smoked in the past 12 months: No If you are a former smoker, when did you quit?: 2001 Hx Alcohol Use: No Drug/Substance Use Hx: No Substance Use Type: None Hx Substance Use Treatment: No <Ibis Giordano - Last Filed: 09/22/17 12:06> - Past Medical History Allergies/Adverse Reactions: Allergies Allergy/AdvReac Type Severity Reaction Status Date / Time No Known Allergies Allergy Verified 09/22/17 08:50 Home Medications: Ambulatory Orders Amlodipine Besylate [Norvasc -] 10 mg PO DAILY 08/05/13 Aspirin [ASA -] 81 mg PO DAILY 08/05/13 Iron 325 mg PO DAILY 08/05/13 Ramipril 10 mg PO DAILY 08/05/13 predniSONE [Deltasone -] 10 mg PO DAILY 08/05/13 Metoprolol Tartrate [Lopressor -] 100 mg PO BID #60 tablet 08/06/13 Insulin Glargine,Hum.rec.anlog [Lantus (10mL VIAL) -] 42 units SQ AM 09/14/16 Tacrolimus [Prograf] 4 mg PO AM 09/14/16 Tacrolimus [Prograf] 5 mg PO HS 09/14/16 Acetaminophen [Tylenol] 325 mg PO Q6H #30 tablet 09/17/16 Atorvastatin Calcium [Lipitor] 60 mg PO DAILY 09/22/17 Cholecalciferol (Vitamin D3) [Vitamin D3] 1,000 unit PO DAILY 09/22/17 Famotidine [Pepcid] 40 mg PO DAILY 09/22/17 Insulin Lispro [Humalog] 0 unit SQ ACHS PRN 09/22/17 Mycophenolate Mofetil [Cellcept] 750 mg PO BID 09/22/17 Review of Systems - Review of Systems Able to Perform ROS?: Yes Comments:: 09/22/17 10:21 GENERAL/CONSTITUTIONAL:(+) Fever. No chills. HEAD, EYES, EARS, NOSE AND THROAT: No change in vision. No ear pain or discharge. No sore throat. CARDIOVASCULAR: No chest pain or shortness of breath. RESPIRATORY: No cough, wheezing, or hemoptysis. GASTROINTESTINAL: (+) Diarrhea. No nausea, vomiting, or constipation. GENITOURINARY: No dysuria, frequency, or change in urination. MUSCULOSKELETAL:(+) body aches. No neck pain. SKIN: No rash NEUROLOGIC: No headache, vertigo, loss of consciousness, or change in strength/ sensation. ENDOCRINE: No increased thirst. No abnormal weight change. HEMATOLOGIC/LYMPHATIC: No anemia, easy bleeding, or history of blood clots. ALLERGIC/IMMUNOLOGIC: No hives or skin allergy. All Other Systems: Reviewed and Negative <Amanda Gibson - Last Filed: 09/22/17 11:39> *Physical Exam - Vital Signs Last Vital Signs Temp Pulse Resp BP Pulse Ox 98.2 F 83 18 82/53 99 09/22/17 08:46 09/22/17 08:46 09/22/17 08:46 09/22/17 08:46 09/22/17 08:46 - Physical Exam Comments: 09/22/17 10:23 GENERAL: Awake, alert, and fully oriented, in no acute distress HEAD: No signs of trauma EYES: PERRLA, EOMI, sclera anicteric, conjunctiva clear ENT: +Dry mucous membranes. Auricles normal inspection, hearing grossly normal, nares patent, oropharynx clear without exudates. NECK: Normal ROM, supple, no lymphadenopathy, JVD, or masses LUNGS: Breath sounds equal, clear to auscultation bilaterally. No wheezes, and no crackles HEART: Regular rate and rhythm, normal S1 and S2, no murmurs, rubs or gallops ABDOMEN: Soft, nontender, normoactive bowel sounds. No guarding, no rebound. No masses EXTREMITIES: Normal range of motion, no edema. No clubbing or cyanosis. No cords, erythema, or tenderness NEUROLOGICAL: Cranial nerves II through XII grossly intact. Normal speech, normal gait SKIN: +Skin tinting. Warm, Dry, normal turgor, no rashes <Amanda Gibson - Last Filed: 09/22/17 11:39> - Vital Signs Last Vital Signs Temp Pulse Resp BP Pulse Ox 98.2 F 83 18 82/53 99 09/22/17 08:46 09/22/17 08:46 09/22/17 08:46 09/22/17 08:46 09/22/17 08:46 <Ibis Giordano - Last Filed: 09/22/17 12:06> Heart Score/ECG Review - ECG Intrepretation Comment:: 09/22/17 10:29 sinus at 74, nl axis, lvh, peaked t wave waves lateral leads, no acute st changes <Ibis Giordano - Last Filed: 09/22/17 12:06> ED Treatment Course - LABORATORY CBC & Chemistry Diagram: 09/22/17 09:40 09/22/17 09:40 - ADDITIONAL ORDERS Additional order review: Laboratory Results 09/22/17 09:40 VBG pH 7.34 POC VBG pCO2 33.7 L POC VBG pO2 33.6 Mixed VBG HCO3 17.9 L - RADIOLOGY Radiograph Interpretation: 09/22/17 10:55 Chest X-ray as reviewed by Dr. Vasquez reports no acute chest pathology. - Medications Given in the ED: ED Medications Discontinued Medications Generic Name Dose Route Start Last Admin Trade Name Rosmery PRN Reason Stop Dose Admin Sodium Chloride 1,000 ml 09/22/17 09:15 09/22/17 09:57 Normal Saline - IV 09/22/17 09:16 1,000 ml ONCE ONE Administration <Amanda Gibson - Last Filed: 09/22/17 11:39> - LABORATORY CBC & Chemistry Diagram: 09/22/17 09:40 09/22/17 09:40 <Ibis Giordano - Last Filed: 09/22/17 12:06> Medical Decision Making - Medical Decision Making 09/22/17 11:39 Microblog sent to [facility]. Awaiting call back. Phone call to Dr. Chappell. Case was discussed and patient will be admitted to ICU. Phone call to Dr. Velasco. Case was discussed. <[email or web address] - Last Filed: 09/22/17 11:39> - Critical Care Time Total Critical Care Time (minutes): 30 Critical Care Statement: The care of this patient involved high complexity decision making to prevent further life threatening deterioration of the patient 's condition and/or to evaluate & treat vital organ system(s) failure or risk of failure. - Medical Decision Making 09/22/17 10:07 a/p: 57yo male with hx of dm, htn and renal transplant in 2004 with diarrhea x 6 days -pt is immunosupressed, had low grade temp 2 days ago -no recent abx or travel, nonbloody diarrhea -pt hypotensive upon arrival -will send labs, cultures, abd soft, nt/nd, +bs -will hydrate -need ua -will need ekg, cxr -stool cultures, c diff, o/p -suspect viral, however given immunosupression concern for infectious/bacterial cause as well 09/22/17 11:17 pt with elevated wbc iraj with a hx of renal transplant will place consult to Dr. Hutchison -will continue ivf hydration pending stool will need admission for low magnesium and iraj 09/22/17 11:29 pt still hypotensive, call placed to Dr. Chappell who accepts the patient to the ICU call placed to DR. velasco for elevated lactate, elevated wbc, diarrhea - recommends po vanc and iv zosyn requests ct abd/pelvis will continue ivf pending symphony discussion 09/22/17 12:[address] Recio who accepts pt to service <Ibis Giordano - Last Filed: 09/22/17 12:06> *DC/Admit/Observation/Transfer - Attestations Scribe Attestion: 09/22/17 10:25 Documentation prepared by Amanda Gibson, acting as medical certification specialist for Ibis Giordano DO. <Amanda Gibson - Last Filed: 09/22/17 11:39> - Discharge Dispostion Decision to Admit order: Yes - Attestations Physician Attestion: 09/22/17 11:19 I, Dr. Ibis Giordano DO, attest that this document has been prepared under my direction and personally reviewed by me in its entirety. I further attest, that it accurately reflects all work, treatment, procedures and medical decision -making performed by me. <Ibis Giordano - Last Filed: 09/22/17 12:06> Diagnosis at time of Disposition: Status post kidney transplant, Acute kidney injury, Hypomagnesemia, Hypotension , Diarrhea - Discharge Dispostion Condition at time of disposition: Critical - Referrals Referrals: Bong Rick MD [Primary Care Provider] - - Patient Instructions - Post Discharge Activity
[2017-09-22] MEDS ORDERED: SODIUM CHLORIDE 0.9% 1000 ML INFUS.BAG IV ONE ×3 (09:15→11:21)
[2017-09-22 10:06] LABS: VENOUS PC02 33.7 mmHg (38-52); VENOUS PH 7.34 (7.32-7.42); VENOUS PO2 33.6 mmHg (28-48)
--- NOTE | 2017-09-22 10:19 | EKG ---
Test Reason : Blood Pressure : / mmHG Vent. Rate : 074 BPM Atrial Rate : 074 BPM P-R Int : 140 ms QRS Dur : 100 ms QT Int : 402 ms P-R-T Axes : 054 045 046 degrees QTc Int : 446 ms NORMAL SINUS RHYTHM MODERATE VOLTAGE CRITERIA FOR LVH, MAY BE NORMAL VARIANT BORDERLINE ECG WHEN COMPARED WITH ECG OF 06-AUG-2013 00:30, PREMATURE ATRIAL COMPLEXES ARE NO LONGER PRESENT T WAVE INVERSION NO LONGER EVIDENT IN INFERIOR LEADS T WAVE AMPLITUDE HAS INCREASED IN LATERAL LEADS Confirmed by QUIQUE JAIMES MD ([id number]) on 09/22/2017 10:19:30 AM Referred By: Confirmed By:QUIQUE JAIMES MD
[2017-09-22 10:25] LABS: BASO % 0.2 % (0-2.0); HEMOGLOBIN 11.8 GM/dL (11.7-16.9); LYMPH % 4.8 % (8-40); MCH 29.1 pg (25.7-33.7); MCHC 32.8 g/dl (32.0-35.9); MEAN CELL VOLUME 88.6 fl (80-96); MONO % 7.3 % (3.8-10.2); NEUT % 87.7 % (42.8-82.8); PLATELET COUNT 296 K/MM3 (134-434); RBC 4.07 M/mm3 (4.00-5.60); RDW 17.6 % (11.9-15.9); WHITE BLOOD COUNT 15.9 K/mm3 (4.0-10.0)
[2017-09-22 10:35] LABS: INR 1.28 (0.82-1.09); PROTHROMBIN TIME (PATIENT) 14.5 SEC (9.7-13.0)
[2017-09-22 10:38] LABS: ACTIVATED PTT 32.3 SECONDS (25.2-36.5)
[2017-09-22 11:03] LABS: ALBUMIN 2.4 g/dl (3.4-5.0); ANION GAP 10 (8-16); BILIRUBIN,TOTAL 1.2 mg/dL (0.2-1.0); BLOOD UREA NITROGEN 34 mg/dL (7-18); CALCIUM 7.9 mg/dL (8.5-10.1); CHLORIDE 102 mmol/L (98-107); CO2 19 mmol/L (21-32); CREATININE 2.6 mg/dL (0.7-1.3); GLUCOSE,RANDOM 200 mg/dL (74-106); LIPASE 129 U/L (73-393); MAGNESIUM 1.4 mg/dL (1.8-2.4); POTASSIUM 4.8 mmol/L (3.5-5.1); SGOT/AST 45 U/L (15-37); SGPT/ALT 24 U/L (12-78); SODIUM 131 mmol/L (136-145); TOT PROT 6.8 g/dl (6.4-8.2)
[2017-09-22 11:06] LABS: ALK PHOS 50 U/L (45-117)
[2017-09-22] MEDS ORDERED: MAGNESIUM SULF 50% (8.12 MEQ/2 ML-1 GM VIAL) IVPB ONE (11:14)
[2017-09-22] MEDS ORDERED: VANCOMYCIN 250 MG/5 ML ORAL SOLUTION PO ONE (11:24)
[2017-09-22] MEDS ORDERED: PIPERACILLIN/TAZOB 3.375 GM 3.375 GM in DEXTROSE 5%-WATER - 50 ML IVPB ONE (11:24)
[2017-09-22] MEDS ORDERED: PIPERACILLIN/TAZOB 3.375 GM 3.375 GM/50 ML BAG IVPB ONE (11:28)
[2017-09-22] MEDS ORDERED: MAGNESIUM 1GM/D5W - 2 GM/200 ML IVPB IVPB ONE (11:28)
[2017-09-22] MEDS ORDERED: ACETAMINOPHEN 500 MG TABLET (FP) PO ONE (11:34)
[2017-09-22] MEDS ORDERED: ACETAMINOPHEN 325 MG TABLET (FP) ONE (11:55)
[2017-09-22 12:04] LABS: PLATELET ESTIMATE ADEQUATE
[2017-09-22] MEDS ORDERED: SODIUM CHLORIDE 1,000 ML IV SCH (12:45)
[2017-09-22 13:10] VITALS: BP 96/73; PULSE 76; TEMP 97.4
--- NOTE | 2017-09-22 13:56 | PN ---
Progress Note (short form) - Note Progress Note: ICU note Pt seen and examined at bedside in ER. Pt accepted to be transferred to [facility].
--- NOTE | 2017-09-23 08:40 | PDOC ---
Patient Follow-up (Call Back) - Post ED Follow - Up Condition at time of discharge: Critical Disposition at time of original discharge: TRANSFER ACUTE CARE/OTHER HOSP Reason for Call Back: Abnwl. Microbiology (Call from micro recieved with a positive blood cultures. Presumptive MRSA in 4 bottles. Called [facility] where patient was transferred to to make aware of results. Spoke with Dr. Knight who is taking care of the pt at [facility])
== END 2017-09-22 13:51 | disposition short-term general hospital (02) | DRG 683 ==
LOC: JER 08:37 → JERBED 11:20
PROVIDERS: ADMIT Internal Medicine; ATTEND Internal Medicine
DX: N17.9 Acute kidney failure, unspecified (principal); Z94.0 Kidney transplant status; E83.42 Hypomagnesemia; I95.9 Hypotension, unspecified; R19.7 Diarrhea, unspecified; E11.9 Type 2 diabetes mellitus without complications; Z79.4 Long term (current) use of insulin; I10 Essential (primary) hypertension; Z87.891 Personal history of nicotine dependence
CPT/HCPCS: 36415; 71045-TC-FY; 74176-TC; 80053; 82550; 82553; 82803; 83605; 83690; 83735; 84484; 85025; 85610; 85730; 86850; 86900; 86901; 87040; 87186; 93005; 93010; 99285-25; J7030